=== PATIENT | male | born 1935 | race Caucasian/White ===

== ENCOUNTER → 2019-01-21 09:06 | Outpatient (CLI) | payer MEDICARE, SELFPAY ==
--- NOTE | 2019-01-21 16:34 | NEURO ---
NCS and/or EMG Patient Report HPI: Patient is a 83-year-old male who presented with numbness, tingling and weakness in both hands. Patient had both rotator cuff surgery in the past. Patient also complains of pain in the neck which is radiating down in shoulders and hands. Patient has prior history of lumbar fusion at L3-L5 about 5 years ago. Physical Exam: Decreased sensation to light touch in both hand fingers. Bilateral hand muscles atrophy including first dorsal interossei and thenar and hypothenar muscles. Degenerative change of both hand and wrist joints are noted. Findings: 1. Right median sensory nerve response is not recordable and there is a prolongation of distal latency of the left median sensory nerve response. 2. Right and left median palmar sensory responses were not recordable. 3. There is prolongation of distal latencies of right and left ulnar sensory nerve responses. 4. There is a prolongation of the distal latencies of right and left median motor nerve responses, right worse than the left, with decreased nerve conduction velocity of the right median motor nerve. 5. There is evidence of slightly decreased nerve conduction velocity of left ulnar motor nerve across the elbow. 6. There is evidence of denervation in the form of P waves and fibrillation potential as well as decreased recruitment and increased insertional activity in right and left abductor pollicis brevis muscles. Impression: 1. Findings are consistent with severe bilateral median mononeuropathy at wrist due to carpal tunnel syndrome. 2. 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 3. No electrodiagnostic evidence of cervical radiculopathy or brachial plexopathy in bilateral upper extremities. Recommendation: 1. Patient recommended to wear both hand and elbow splints as much as possible. 2. Patient is recommended to avoid repetitive hand movements and lifting heavy weights or sleeping or leaning on elbows. 3. Patient recommended to have a surgical release of right and left carpal tunnel as soon as possible.
== END ==
PROVIDERS: Family Provider Family Medicine; PCP Family Medicine; Referring Provider Orthopaedic Surgery Orthopaedic Surgery of the Spine; Visit Provider Orthopaedic Surgery Orthopaedic Surgery of the Spine
DX: R20.2 Paresthesia of skin (principal)
CPT/HCPCS: 95886; 95912

== ENCOUNTER → 2019-01-28 10:50 | Outpatient (CLI) | payer MEDICARE, SELFPAY ==
--- NOTE | 2019-01-28 17:16 | STRESSREP ---
Stress Test Report Date: 01-28-19 Procedure: Exercise tolerance test Indications: Jaw discomfort; fatigue Consent: Per the patient Procedure: The patient exercised on a Junaid protocol for 6 minutes completing stage II achieving a peak heart rate of 125 bpm (90 % predicted maximal heart rate) with a peak blood pressure 198/92 mmHg and a peak MET capacity of approximately 7 mET's. The baseline ECG demonstrated normal sinus rhythm. The peak exercise ECG demonstrated no obvious ECG changes. There was a rare PVC during exercise and an occasional PVC during recovery. The functional capacity was considered good. The patient had no complaint of chest discomfort during exercise or recovery. The examination was discontinued secondary to dyspnea. Impression: 1. Technically adequate (percent predicted maximal heart rate greater than 85%) exercise tolerance test 2. Peak exercise ECG with no obvious ECG changes 3. There was a rare PVC during exercise and an occasional PVC during recovery This note was generated with [employer] software. It may contain incorrect words, spelling, and punctuation that were not noted in checking the note before signing.
== END ==
PROVIDERS: Family Provider Family Medicine; PCP Family Medicine; Referring Provider Physician Assistant; Visit Provider Physician Assistant
DX: I51.89 Other ill-defined heart diseases (principal); R68.84 Jaw pain; R12 Heartburn; Z82.49 Family history of ischemic heart disease and other diseases of the circulatory system
CPT/HCPCS: 93017

== ENCOUNTER → 2020-03-13 13:25 | Outpatient (CLI) | payer MEDICARE, SELFPAY ==
--- NOTE | 2020-03-13 13:30 | RAD_ITS ---
STUDY: X-RAY CHEST REASON FOR EXAM: Male, 84 years old. Shortness of breath for 3 to 4 days. TECHNIQUE: PA and lateral views of the chest. COMPARISON: 03/04/2013 FINDINGS: There is ground glass infiltrates peripherally in both lungs most marked in the right upper lobe. There is no demonstrated pleural abnormality. Normal size heart. Normal mediastinum and krystina. Normal visualized pulmonary arteries. Normal visualized aortic arch and descending thoracic aorta. There are diffuse degenerative changes of the visualized thoracic spine. There is degenerative osteoarthritis of the bilateral shoulders. There is no demonstrated abnormality of the visualized soft tissue structures of the upper abdomen. RAD/Chest PA and Lateral IMPRESSION: Peripheral groundglass infiltrates suspicious for COVID 19 pneumonia. Electronically Signed: Shola Nunez DO at 22:42 EST Tel [phone], Service support ,
== END ==
PROVIDERS: PCP Family Medicine
DX: R06.02 Shortness of breath (principal)
CPT/HCPCS: 71046

== ENCOUNTER 2020-03-15 09:19 | Inpatient (IN) | payer MEDICARE, SELFPAY ==
[2020-03-15] VITALS (13 sets, daily range): BP systolic 125–163; BP diastolic 61–95; PULSE 55–96; RESP 16–21; TEMP 35.7–36.4; O2SAT 91–96; BMI 27.0; BMI 26.1
--- NOTE | 2020-03-15 09:33 | EKG12_ITS ---
Test Reason : Blood Pressure : / mmHG Vent. Rate : 064 BPM Atrial Rate : 064 BPM P-R Int : 192 ms QRS Dur : 090 ms QT Int : 414 ms P-R-T Axes : 036 -09 029 degrees QTc Int : 427 ms Normal sinus rhythm Possible Left atrial enlargement Left ventricular hypertrophy Abnormal ECG Confirmed by SUSANA CAI, VITA ([id number]), video news editor LATANYA WOODS ([id number]) on 03/19/2020 10:45:42 AM Referred By: ATA Confirmed By:OLIVIA MEZA MD
--- NOTE | 2020-03-15 09:38 | ED.DCSUM_ITS ---
- ER Visit Summary Date of Service: 03/15/20 Chief Complaint: Cough History of Present Illness: The patient is a 84 M with a history of asthma. He presents for increasing cough and shortness of breath over the past 5 days. This came on gradually. He never had this before. Associated with fevers for 3 of the days. His had similar symptoms. No chest pain. No leg pain, swelling, hemoptysis, or history of DVT or PE. No known exposures to COVID-19. Physical Examination: Afebrile and vital signs unremarkable. His oxygen is borderline at 91-93% on room air. He does not appear to be in any distress. Heart regular. Lungs clear. Abdomen soft. Extremities nontender with no edema. Skin appears normal. Test Results: EKG, labs, chest x-ray pending. Emergency Department Course and Treatment: Patient treated with albuterol and dexamethasone while awaiting results. I am concerned for an infectious etiology. EKG shows sinus rhythm at a rate of 64. Chest x-ray shows decreasing bilateral infiltrates. This was reviewed by me and the radiologist. Covid test was negative. White count was normal. His BNP was 244. Troponin normal. Labs all fairly unremarkable except his sodium is 119. I did check urine and osmolality testing. Is also pending. He was treated with normal saline. Will contact the hospitalist for admission for further care. Prior to admission, the patient's pulse ox was 83% at rest on room air. He was started on a nasal cannula and had good response. We will add a CTA chest. Results are pending at the time of this dictation. PCR Covid test was positive. CTA showed no evidence of PE. Treatment Plan: As above Disposition: Admission, covid cohort Impression: Covid 19, hypoxia, hyponatremia This note was generated with [employer] software. It may contain incorrect words, spelling, and punctuation that were not noted in review of the chart prior to signing ED Disposition - Plan for ED Patient: Referrals: Santos Franz MD [Primary Care Provider] -
[2020-03-15 09:57] LABS: Absolute Lymphocyte Count 0.33 X10^3/uL (0.83-4.51); Absolute Neutrophil Count 4.4 X10^3/uL (2.0-7.7); Basophil# 0.01 X10^3/uL; Basophil% 0.2 % (0-1); Hematocrit 35.8 % (40-54); Hemoglobin 12.4 g/dL (13.0-16.5); Lymphocyte # 0.33 X10^3/ul (4.0); Lymphocyte % 6.4 % (19-41); Mean Corp Hgb Conc 34.6 g/dL (32-36); Mean Corpuscular Hgb 28.2 pg (27.0-32.0); Mean Corpuscular Volume 81.5 fL (80-94); Mean Platelet Vol. 10.1 fl (6.2-12.0); Monocyte# 0.45 X10^3/uL; Monocyte% 8.7 % (0-10); NRBC Flagged by Analyzer 0 % (0-5); Neutrophil # 4.38 X10^3/uL (2.7-7.7); Neutrophil % 84.3 % (47-70); POSITIVE DIFFERENTIAL YES; Platelet Count 315 K/mm3 (150-450); RBC Distribution Width CV 12.5 % (11.6-14.6); RBC Distribution Width SD 37.8 fl (35.1-43.9); Red Blood Count 4.39 M/mm3 (4.6-6.2); White Blood Count 5.2 K/mm3 (4.4-11.0)
[2020-03-15 09:58] LABS: Differential Indicated SCAN CRITERIA MET
[2020-03-15] MEDS: dexAMETHasone 4 MG/ML Vial 6 MG IV (10:05)
[2020-03-15 10:16] LABS: BNP,B-Type NATRIURETIC PEPTIDE 244.3 pg/mL (0-100)
--- NOTE | 2020-03-15 10:16 | RAD_ITS ---
STUDY: X-RAY CHEST REASON FOR EXAM: Male, 84 years old. COUGH, SOB, FATIGUE, WEAKNESS TECHNIQUE: Single AP portable view of the chest. COMPARISON: Comparison is made with prior study dated 03/13/2020. FINDINGS: EKG electrodes are seen. Mild residual pulmonary infiltrates are seen. There is been moderate clearing as compared to prior study. Blunting of both costophrenic angles. Normal size heart. Normal mediastinum and krystina. Normal visualized pulmonary arteries. There is atherosclerotic tortuosity of the aortic arch and descending thoracic aorta. There are diffuse degenerative changes of the visualized thoracic spine. There is degenerative osteoarthritis of the bilateral shoulders. There is no demonstrated abnormality of the visualized soft tissue structures of the upper abdomen. RAD/Chest 1 View (Portable) IMPRESSION: Mild residual bilateral pulmonary infiltrates although there has been a moderate degree of clearing as compared to prior study. Electronically Signed: Juan Carlos Pruett MD at 10:30 EST , Service support ,
[2020-03-15 10:27] LABS: ALB/GLOB Ratio 0.8 RATIO (0.9-2.4); AST(SGOT) 69 U/L (15-37); Alanine Aminotransfer ALT/SGPT 44 U/L (16-61); Alkaline Phosphatase 64 U/L (45-117); Anion Gap 9 (5-15); BUN 15 mg/dL (7-18); BUN/Creat Ratio 15.2 RATIO (10-20); Calcium,Total 8.8 mg/dL (8.5-10.1); Chloride 86 mmol/L (98-107); Creatinine, Serum 0.99 mg/dL (0.70-1.30); EST Glomerular Filtration Rate 77 mL/min (>60); Est Glom Filt Rate - Afr Amer 93 mL/min (>60); Globulin 3.6 g/dL (2.2-4.2); Glucose 107 mg/dL (74-106); Potassium 4.1 mmol/L (3.5-5.1); Protein, Total 6.6 g/dL (6.4-8.2); Sodium Level 119 mmol/L (136-145)
[2020-03-15] MEDS: 0.9% Normal Saline 1,000 ML 150 ML IV ×2 (10:54→15:10)
--- NOTE | 2020-03-15 10:59 | CT_ITS ---
STUDY: CTA CHEST REASON FOR EXAM: Male, 84 years old. Pulmonary emboli, cough, SOB, weakness, fatigue, COVID pending. Hx skin and prostate cancer. RADIATION DOSAGE (If Supplied By Facility): CTDIvol = ( 10.59 ) mGy, DLP = ( 434.30 ) mGycm TECHNIQUE: The examination was performed with the intravenous administration of IV 100mL Isovue-370. Post-processing of the angiographic images was performed, with multiplanar reformation and 3D reconstruction. Individualized dose optimization techniques were used for this CT. COMPARISON: None. FINDINGS: Normal enhancement of the main pulmonary artery and right and left pulmonary arteries. Normal enhancement of the bilateral peripheral pulmonary arteries. There is no demonstrated pulmonary embolism. Normal thoracic aorta and visualized great vessels. There is no demonstrated aortic dissection. There are calcifications of the coronary arteries. There are visualized mediastinal lymph nodes, which are within normal size limits, and with normal morphology. Normal hilar regions. Normal visualized trachea and bronchi. The lungs are well expanded. Multiple diffuse bilateral groundglass appearance in both lungs and the preferential peripheral distribution. There is evidence of a scarring and bronchiectasis in the posterior aspect of the lingular segment of the left upper lobe. Small bilateral pleural effusions slightly more prominent on the left side. Normal chest wall structures. There are degenerative changes of thoracic spine. Normal visualized upper abdomen. CT/CTA Chest W/WO Contrast IMPRESSION: No evidence of pulmonary embolism. Diffuse bilateral groundglass appearance in both lungs as described. Small bilateral effusions more prominent on the left side. Electronically Signed: Juan Carlos Pruett MD at 12:46 EST , Service support ,
[2020-03-15 11:07] LABS: Bacteria 0 SEEN /hpf (None Seen); Mucous, Urine 0 SEEN /hpf (<or=2+); Red Blood Cells-Urine 0 SEEN /hpf (0-5); Squamous Epithelial Cells - UA 0 SEEN /hpf (0-5); White Blood Cells 0 SEEN /hpf (0-5)
[2020-03-15 11:09] LABS: Color, Urine Yellow (Yellow); Glucose, Dipstick Normal (Normal); Ketone-Dipstick 5 mg/dl (Negative); Leukocyte Esterase-Dipstick Negative /ul (Negative); Nitrite-Dipstick Negative (Negative); Occult Blood-Urine Negative /ul (Negative); Protein-Dipstick 30 mg/dl (Negative); Urine Bilirubin Dipstick Negative (Negative); Urine Clarity Clear (Clear); Urine Urobilinogen Normal (Normal); Urine pH 6.5 (5.0 - 8.0)
[2020-03-15 11:14] LABS: Osmolality, Serum 246 mOsm/KG (280-301)
[2020-03-15 11:14] LABS: Osmolality, Urine 288 mOsm/KG; Urine Sodium 19 mmol/L (Not Establ.)
--- NOTE | 2020-03-15 12:01 | HP.PCM_ITS ---
Problem List (1) Chronic hyponatremia Status: Acute (2) Hypoxia Status: Acute (3) BPH (benign prostatic hyperplasia) Status: Chronic (4) Asthma Status: Acute History of Present Illness Date of Admission: 03/15/20 Chief Complaint: Cough shortness of breath and mild fever for last 5 days The patient is a 84 year old M with no significant past medical history except BPH came to ED with cough, shortness of breath fever for last 5 days. He also had mild diaphoresis but denies chest pain/tightness or heaviness. He has productive cough with initial clear but is now yellowish now. Shortness of breath is getting worse initially on exertion but currently dyspnea at rest. He denies nausea, vomiting or diarrhea. Denies exposure to any suspected COVID-19 person. His COVID-19 PCR is negative. Chest x-ray done in the ER shows mild residual bilateral pulmonary infiltrate although it is better than the previous chest x-ray on 03/13 which showed bilateral peripheral groundglass infiltrates more marked in right upper lobe EKG shows normal sinus rhythm at 64 beats minute with LVH, LAE, QTC 427 ms. In ED, heart rate 64/min. Blood pressure 136/62 pulse ox 92% on [address] angiogram ordered by ER physician. Sodium is 119. Serum osmolarity 246. Previous sodium was 136 in April 2013. Urine osmolarity 288, urine sodium 19. Past Medical History Past Medical History (Chronic Problems): Chronic Problems BPH (benign prostatic hyperplasia) (Chronic) Allergies ciprofloxacin [From Cipro] Adverse Reaction (Verified 03/15/20 09:21) Nausea/Vom/Diarrhea sulfamethoxazole [From Bactrim] Adverse Reaction (Verified 03/15/20 09:21) Other caused liver to shut down trimethoprim [From Bactrim] Adverse Reaction (Verified 03/15/20 09:21) Other caused liver to shut down Home Medications: Ambulatory Orders Medication Instructions Recorded Multivitamins,Therapeutic 1 tablet PO DAILY 01/29/13 [Multivitamin] Clancy-3 Fatty Acids/Fish Oil 1 each PO DAILY 01/29/13 [Clancy 3 1,000 mg Softgel] Saw [place] 160 mg PO DAILY 01/29/13 Vitamin E 400 units PO DAILY 01/29/13 Vit A/Vit C/Vit E/Zinc/Copper 1 each PO DAILY 03/01/13 [Icaps Areds Formula Tablet] [place] 2,000 mg PO DAILY 09/05/16 Dutasteride 0.5 mg PO DAILY #30 capsule 09/10/16 Smoking Status: Former smoker Alcohol: None Drugs: None - *Family History Paternal History Items: No pertinent history Review of Systems Constitutional: Reports: Chills, Fever, Malaise, Weakness. Denies: Weight Change HEENT: Denies: Head Aches, Sinus Congestion, Sinus Drainage Cardiovascular: Denies: Chest Pain, Palpitations Respiratory: Reports: Cough, Shortness of Breath, Shortness of breath at rest, Shortness of breath upon exertion, Sputum production Gastrointestinal: Denies: Abdominal Pain, Nausea, Vomiting Genitourinary: Reports: Hesitancy. Denies: Dysuria, Frequency, Hematuria Musculoskeletal: Reports: Joint Pain. Denies: Joint Tenderness Skin: Denies: Rash, Wounds Neurological: Denies: Numbness, Tingling, Focal weakness Psychiatric: Denies: Anxiety, Depression, Homicidal Ideations, Suicidal Ideations Hematologic/ Lymphatic: Denies: Easy Bruising, Easy Bleeding VTE Information - Inpt Only VTE Present on Admission: No VTE Mechan Device Prophylaxis: None VTE Pharm Prophylaxis ordered?: Yes Patient Problems: Active and Suspected Problems Chronic hyponatremia (Acute) Hypoxia (Acute) Objective: Physical exam General: Alert, Oriented x3, Cooperative HEENT: Atraumatic, PERRLA, EOMI, Normocephalic Oral: No Gingival or Mucosal Lesions/ Ulcerations Neck: Supple, No JVD, Negative Carotid Bruits Lungs: Air entry diminished in bilateral lung bases. No wheezing. No crepitation/rhonchi Cardiovascular: Regular rate, Regular Rhythm, Normal S1, Normal S2, No murmurs Abdomen: Bowel Sounds Present, Soft, Non Tender, Non-Distended : No renal angle tenderness. No suprapubic tenderness. Extremities: No edema, Capillary Refill Less than 3 Seconds Skin: No rashes, No breakdown Musculoskeletal: Bony hypertrophy and arthritis changes in wrist and hand bones. No Tenderness to Palpation of Joints or Extremities Neurological: Cranial nerves II-XII grossly intact, Deep Tendon Reflexes 2+/4 and Symmetrical, Neuro grossly intact Psych/Mental Status: Normal Affect, Appropriate. - Physical Exam Vitals/I&O's: Vital Signs Temp Pulse Resp BP Pulse Ox 97.3 F L 64 20 H 136/62 H 92 03/15/20 10:51 03/15/20 10:51 03/15/20 10:51 03/15/20 10:51 03/15/20 10:51 Oxygen Flow Rate (L/min) 2 Oxygen Delivery Method Nasal Cannula Weight: 178 lb Body Mass Index (BMI) 27.0 Microbiology Past 72 Hours 03/15/20 09:32 Mucosa - Nose SARS-CoV-2 Antigen (Rapid) - Final Laboratory Results 03/15/20 09:38: WBC 5.2, RBC 4.39 L, Hgb 12.4 L, Hct 35.8 L, MCV 81.5, MCH 28.2, MCHC 34.6, RDW Std Deviation 37.8, RDW Coeff of Jaspreet 12.5, Plt Count 315, MPV 10.1, Immature Gran % (Auto) 0.400, Neut % (Auto) 84.3 H, Lymph % (Auto) 6.4 L, [place] % (Auto) 8.7, Eos % (Auto) 0.0, Baso % (Auto) 0.2, Absolute Neuts (auto) 4.4, Absolute Lymphs (auto) 0.33 L, Nucleated RBC % 0, Differential Comment COMMENT 03/15/20 09:38: Sodium 119 L*, Potassium 4.1, Chloride 86 L, Carbon Dioxide 24.0, Anion Gap 9, BUN 15, Creatinine 0.99, Estim Creat Clear Calc 54.70, Est GFR (MDRD) Af Amer 93, Est GFR (MDRD) Non-Af 77, BUN/Creatinine Ratio 15.2, Glucose 107 H, Calcium 8.8, Total Bilirubin 0.80, AST 69 H, ALT 44, Alkaline Phosphatase 64, Troponin I < 0.015, Total Protein 6.6, Albumin 3.0 L, Globulin 3.6, Albumin/Globulin Ratio 0.8 L 03/15/20 09:38: B-Natriuretic Peptide 244.3 H 03/15/20 09:38: Serum Osmolality 246 L 03/15/20 10:40: COVID-19 (GOPI) Pending 03/15/20 10:58: Urine Color Yellow, Urine Clarity Clear, Urine pH 6.5, Ur Specific Kiana 1.010, Urine Protein 30 H, Urine Glucose (UA) Normal, Urine Ketones 5 H, Urine Occult Blood Negative, Urine Nitrite Negative, Urine Bilirubin Negative, Urine Urobilinogen Normal, Ur Leukocyte Esterase Negative, Urine RBC 0 SEEN, Urine WBC 0 SEEN, Ur Squamous Epith Cells 0 SEEN, Urine Bacteria 0 SEEN, Urine Mucus 0 SEEN 03/15/20 10:58: Urine Osmolality 288 03/15/20 10:58: Ur Random Sodium 19 Current Medications Sodium Chloride () 1,000 mls @ 150 mls/hr IV .[id number] [facility] Last Admin: 03/15/20 10:54 Dose: 150 mls/hr Documented by: Assessment/Plan All Active Problems Chronic hyponatremia (Acute) Hypoxia (Acute) Asthma (Acute) The patient is a 84 year old M with no significant past medical history except BPH came to ED with cough, shortness of breath fever for last 5 days. He also had mild diaphoresis but denies chest pain/tightness or heaviness. EKG shows normal sinus rhythm at 64 beats minute with LVH, LAE, QTC 427 ms. Sodium is 119. Serum osmolarity 246. Previous sodium was 136 in April 2013. Urine osmolarity 288, urine sodium 19. 1. Subacute hyponatremia: Patient is being admitted in PCU. Urine osmolality more than serum osmolality. Patient denies any symptoms or conditions of hypovolemia. Monitor serum sodium after 4 hours 6 hourly. 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 Request nephrology consult. Patient denies any history of cancer, prolonged smoking, emphysema or COPD. 2. Possible viral bronchitis with history of chronic stable asthma: Patient is not on inhaler at home. Does not seem to be in acute asthma exacerbation but symptoms are more suggestive of acute bronchitis probably viral. Rapid antigen SARS-CoV-2 negative, COVID-19 PCR test is pending. If COVID-19 is negative, will order respiratory panel. Continue DuoNeb q. 4 hourly and steroid for symptomatic management. Incentive spirometry and PEP. Chest x-ray done in the ER shows mild residual bilateral pulmonary infiltrate although it is better than the previous chest x-ray on 03/13 which showed bilateral peripheral groundglass infiltrates more marked in right upper lobe 3. BPH: Patient used to follow Dr. Dinero and had cystoscopy, TURP and right scrotal orchiectomy for hydrocele. Currently patient is on saw palmetto. 4. VTE prophylaxis: On Lovenox 40 mils subcu daily Microbiology Past 72 Hours 03/15/20 09:32 Mucosa - Nose SARS-CoV-2 Antigen (Rapid) - Final Laboratory Results 03/15/20 09:38: WBC 5.2, RBC 4.39 L, Hgb 12.4 L, Hct 35.8 L, MCV 81.5, MCH 28.2, MCHC 34.6, RDW Std Deviation 37.8, RDW Coeff of Jaspreet 12.5, Plt Count 315, MPV 10.1, Immature Gran % (Auto) 0.400, Neut % (Auto) 84.3 H, Lymph % (Auto) 6.4 L, [place] % (Auto) 8.7, Eos % (Auto) 0.0, Baso % (Auto) 0.2, Absolute Neuts (auto) 4.4, Absolute Lymphs (auto) 0.33 L, Nucleated RBC % 0, Differential Comment COMMENT 03/15/20 09:38: Sodium 119 L*, Potassium 4.1, Chloride 86 L, Carbon Dioxide 24.0, Anion Gap 9, BUN 15, Creatinine 0.99, Estim Creat Clear Calc 54.70, Est GFR (MDRD) Af Amer 93, Est GFR (MDRD) Non-Af 77, BUN/Creatinine Ratio 15.2, Glucose 107 H, Calcium 8.8, Total Bilirubin 0.80, AST 69 H, ALT 44, Alkaline Phosphatase 64, Troponin I < 0.015, Total Protein 6.6, Albumin 3.0 L, Globulin 3.6, Albumin/Globulin Ratio 0.8 L 03/15/20 09:38: B-Natriuretic Peptide 244.3 H 03/15/20 09:38: Serum Osmolality 246 L 03/15/20 10:40: COVID-19 (GOPI) Positive 03/15/20 10:58: Urine Color Yellow, Urine Clarity Clear, Urine pH 6.5, Ur Specific Kiana 1.010, Urine Protein 30 H, Urine Glucose (UA) Normal, Urine Ketones 5 H, Urine Occult Blood Negative, Urine Nitrite Negative, Urine Bilirubin Negative, Urine Urobilinogen Normal, Ur Leukocyte Esterase Negative, Urine RBC 0 SEEN, Urine WBC 0 SEEN, Ur Squamous Epith Cells 0 SEEN, Urine Bacteria 0 SEEN, Urine Mucus 0 SEEN 03/15/20 10:58: Urine Osmolality 288 03/15/20 10:58: Ur Random Sodium 19 Clinical Impression(s) from Imaging Studies Chest X-Ray 03/15/20 10:16 IMPRESSION: Mild residual bilateral pulmonary infiltrates although there has been a moderate degree of clearing as compared to prior study. Inpatient E&M: [id number] Init Hosp L3
[2020-03-15 12:17] LABS: Probe Check PASS; Specimen Processing Control PASS
[2020-03-15] MEDS: guaiFENesin 1,200 MG Tablet 1200 MG PO ×2 (15:40→20:37)
[2020-03-15] MEDS: Enoxaparin 30 MG/0.3 ML Syringe SC ×2 (15:45→20:37)
[2020-03-15] MEDS: Ipratropium/Albuterol Sulfate 3 ML AMPUL.NEB INHALATION (19:40)
[2020-03-15] MEDS: Acetaminophen 325 MG Tablet 650 MG PO (20:37)
[2020-03-15] MEDS: MELATONIN 3 MG TABLET PO (20:38)
[2020-03-16] VITALS (14 sets, daily range): BP systolic 107–142; BP diastolic 53–74; PULSE 50–72; RESP 12–20; TEMP 35.8–36.4; O2SAT 91–96
[2020-03-16] MEDS: Ipratropium/Albuterol Sulfate 3 ML AMPUL.NEB INHALATION ×3 (07:08→15:19)
[2020-03-16 07:16] LABS: Absolute Lymphocyte Count 0.45 X10^3/uL (0.83-4.51); Absolute Neutrophil Count 2.8 X10^3/uL (2.0-7.7); Basophil# 0.01 X10^3/uL; Basophil% 0.3 % (0-1); Hematocrit 39.1 % (40-54); Hemoglobin 13.4 g/dL (13.0-16.5); Lymphocyte # 0.45 X10^3/ul (4.0); Lymphocyte % 12.6 % (19-41); Mean Corp Hgb Conc 34.3 g/dL (32-36); Mean Corpuscular Hgb 28.2 pg (27.0-32.0); Mean Corpuscular Volume 82.3 fL (80-94); Mean Platelet Vol. 10.1 fl (6.2-12.0); Monocyte# 0.32 X10^3/uL; NRBC Flagged by Analyzer 0 % (0-5); Neutrophil # 2.76 X10^3/uL (2.7-7.7); Neutrophil % 77.3 % (47-70); POSITIVE DIFFERENTIAL YES; Platelet Count 361 K/mm3 (150-450); RBC Distribution Width CV 12.7 % (11.6-14.6); RBC Distribution Width SD 38.3 fl (35.1-43.9); Red Blood Count 4.75 M/mm3 (4.6-6.2); White Blood Count 3.6 K/mm3 (4.4-11.0)
[2020-03-16 07:42] LABS: Differential Indicated SCAN CRITERIA MET
[2020-03-16 08:10] LABS: Anion Gap 6 (5-15); BUN 17 mg/dL (7-18); BUN/Creat Ratio 20.6 RATIO (10-20); Calcium,Total 9.6 mg/dL (8.5-10.1); Chloride 102 mmol/L (98-107); Creatinine, Serum 0.83 mg/dL (0.70-1.30); EST Glomerular Filtration Rate 94 mL/min (>60); Est Glom Filt Rate - Afr Amer 114 mL/min (>60); Estimated Creatinine Clearance 65.24 ml/min; Glucose 119 mg/dL (74-106); Phosphorus 3.4 mg/dL (2.5-4.9); Potassium 4.2 mmol/L (3.5-5.1); Sodium Level 133 mmol/L (136-145); Thyroid Stim Hormone (TSH) 0.48 uIU/mL (0.358-3.74)
[2020-03-16] MEDS: Vitamin E 400 UNITS Capsule PO (09:46)
[2020-03-16] MEDS: guaiFENesin 1,200 MG Tablet 1200 MG PO ×2 (09:46→20:11)
[2020-03-16] MEDS: Finasteride 5 MG Tablet PO (09:46)
[2020-03-16] MEDS: Enoxaparin 30 MG/0.3 ML Syringe SC ×2 (09:47→20:11)
[2020-03-16] MEDS: dexAMETHasone 10 MG/ML Vial 6 MG IV (09:49)
[2020-03-16] MEDS: 0.9% Saline Lock 10 ML Syringe IV (09:50)
--- NOTE | 2020-03-16 11:23 | CASEMGMT ---
RN CM Assessment Note Introduced role of CM to patient via phone to room. Demographics, PCP verified. Patient is awake, alert and able to participate in assessment. [place] , and his son also lives on farm. Pt states he does not wear oxygen at home, however borrowed a friend's oxygen tank to use. Discussed with patient that testing will be completed prior to discharge and if oxygen would be needed, would be set up. states his also has symptoms, but son can assist her if needed to bring groceries, supplies etc. COVID 19 test positive on 03/15/20 @ [facility] Presentation: shortness of breath, productive cough. Diagnosis: COVID 19 PCP: Dr. Franz Specialists: none Insurance: [employer] [facility] PPO Preferred Pharmacy: [facility] Prescription Benefit: yes LNOK: and son Living Arrangements: Lives independently in one story home. Denies care needs. Tranportation: drives DME: walker, does not use. Discussed list of oxygen providers in network with [employer]: [facility] (aware of hospital affiliation), [facility]. The patient prefers [facility]. HHC: none SNF: none Patient DC Goals: Home DC Plan: Home. Possible home oxygen needs. Recommend testing prior to dc. CM available for discharge planning coordination. Contact CM for any concerns/needs that may arise. Jesus LORENZO RN ACM
--- NOTE | 2020-03-16 12:57 | PN_ITS ---
Patient Problems: Active and Suspected Problems Chronic hyponatremia (Acute) Hypoxia (Acute) Asthma (Acute) Reason for Visit: Follow-up for hyponatremia and COVID-19 bilateral pneumonia. Objective: Patient does not have fever or chills. Heart rate in 50s. Respiratory rate 18/min. No shortness of breath at rest but dyspnea on exertion. Physical exam General: Alert, Oriented x3, Cooperative HEENT: Atraumatic, PERRLA, EOMI, Normocephalic Oral: No Gingival or Mucosal Lesions/ Ulcerations Neck: Supple, No JVD, Negative Carotid Bruits Lungs: Air entry diminished in bilateral lung bases. No crepitation/rhonchi Cardiovascular: Regular rate, Regular Rhythm, Normal S1, Normal S2, No murmurs Abdomen: Bowel Sounds Present, Soft, Non Tender, Non-Distended : No renal angle tenderness. No suprapubic tenderness. Extremities: No edema, Capillary Refill Less than 3 Seconds Skin: No rashes, No breakdown Musculoskeletal: No Tenderness to Palpation of Joints or Extremities Neurological: Cranial nerves II-XII grossly intact, Deep Tendon Reflexes 2+/4 and Symmetrical, Neuro grossly intact Psych/Mental Status: Normal Affect, Appropriate. Vitals/I&O's: Vital Signs Temp Pulse Resp BP Pulse Ox 96.5 F L 58 L 20 H 107/53 L 96 03/16/20 09:43 03/16/20 09:43 03/16/20 09:43 03/16/20 09:43 03/16/20 09:43 Oxygen Flow Rate (L/min) 2 Oxygen Delivery Method Room Air Weight: 171 lb 15.369 oz Body Mass Index (BMI) 26.1 Intake and Output for Last 24 Hours 03/14/20 03/15/20 03/16/20 23:59 23:59 23:59 Intake Total 2207.5 / 2207.5 Balance 2207.5 / 2207.5 Microbiology Past 72 Hours 03/15/20 19:35 Mucosa - Nasopharyngeal Respiratory Panel (PCR) - Final 03/15/20 09:32 Mucosa - Nose SARS-CoV-2 Antigen (Rapid) - Final Laboratory Results 03/15/20 09:38: Magnesium 2.0 03/16/20 06:55: Sodium 133 L, Potassium 4.2, Chloride 102, Carbon Dioxide 25.0, Anion Gap 6, BUN 17, Creatinine 0.83, Estim Creat Clear Calc 65.24, Est GFR (MDRD) Af Amer 114, Est GFR (MDRD) Non-Af 94, BUN/Creatinine Ratio 20.6 H, Glucose 119 H, Calcium 9.6, Phosphorus 3.4, TSH 0.48 03/16/20 06:55: WBC 3.6 L, RBC 4.75, Hgb 13.4, Hct 39.1 L, MCV 82.3, MCH 28.2, MCHC 34.3, RDW Std Deviation 38.3, RDW Coeff of Jaspreet 12.7, Plt Count 361, MPV 10.1, Immature Gran % (Auto) 0.800, Neut % (Auto) 77.3 H, Lymph % (Auto) 12.6 L, [place] % (Auto) 9.0, Eos % (Auto) 0.0, Baso % (Auto) 0.3, Absolute Neuts (auto) 2.8, Absolute Lymphs (auto) 0.45 L, Nucleated RBC % 0, Diff Path Review May foll Current Medications Acetaminophen (Acetaminophen 325 Mg Tablet) 650 mg PO Q6H PRN PRN PRN Reason: Pain Score 1-10/Temp > 100.7 F Last Admin: 03/15/20 20:37 Dose: 650 mg Documented by: Al Hydroxide/Mg Hydroxide (Mag Hydrox/Al Hydrox/Simeth 30 Ml Udc) 30 ml PO Q6H PRN PRN PRN Reason: Gastric Burning Albuterol Sulfate (Albuterol 2.5 Mg/3 Ml Vial.Neb.) 2.5 mg INHALATION Q2H PRN PRN PRN Reason: SOB/Wheezing Albuterol/Ipratropium (Ipratropium/Albuterol Sulfate 3 Ml Ampul.Neb) 3 ml I NHALATION Q4HWA.RT [facility] Last Admin: 03/16/20 11:19 Dose: 3 ml Documented by: Dexamethasone Sodium Phosphate (Dexamethasone 10 Mg/Ml Vial) 6 mg IV DAILY [facility] Last Admin: 03/16/20 09:49 Dose: 6 mg Documented by: Enoxaparin Sodium (Enoxaparin 30 Mg/0.3 Ml Syringe) 30 mg SC BID [facility] Last Admin: 03/16/20 09:47 Dose: 30 mg Documented by: Finasteride (Finasteride 5 Mg Tablet) 5 mg PO DAILY [facility] Last Admin: 03/16/20 09:46 Dose: 5 mg Documented by: Guaifenesin (Guaifenesin 1,200 Mg Tablet) 1,200 mg PO BID [facility] Last Admin: 03/16/20 09:46 Dose: 1,200 mg Documented by: Remdesivir 100 mg/ Sodium (Chloride) 250 mls @ 125 mls/hr IV DAILY [facility] Stop: 03/19/20 11:59 Last Admin: 03/16/20 10:16 Dose: 125 mls/hr Documented by: Sodium Chloride () 250 mls @ 15 mls/hr IV .[id number] PRN PRN Reason: Additional IVPB Infusion Melatonin (Melatonin 3 Mg Tablet) 3 mg PO QHS PRN PRN PRN Reason: INSOMNIA Last Admin: 03/15/20 20:38 Dose: 3 mg Documented by: Morphine Sulfate (Morphine 2 Mg/Ml Syringe) 2 mg IV Q3H PRN PRN PRN Reason: Pain Score 6-10 Nitroglycerin (Nitroglycerin (Inpatient Use) 0.4 Mg Tab.Subl) 0.4 mg SUBLINGUAL Q5M PRN PRN Reason: CARDIAC/CHEST PAIN Oxycodone HCl (Oxycodone 5 Mg Tablet) 5 mg PO Q4H PRN PRN PRN Reason: Pain Score 4-5 Prochlorperazine Edisylate (Prochlorperazine 10 Mg/2 Ml Vial) 5 mg IV Q4H PRN PRN PRN Reason: Breakthrough Nausea/Vomiting Senna/Docusate Sodium (Senna/Docusate Sodium 1 Tablet) 2 tablet PO BID PRN PRN PRN Reason: Constipation Sodium Chloride (0.9% Saline Lock 10 Ml Syringe) 10 - 40 ml IV UD PRN PRN Reason: SALINE FLUSH Last Admin: 03/16/20 09:50 Dose: 10 ml Documented by: Vitamin E (Vitamin E 400 Units Capsule) 400 units PO DAILY [facility] Last Admin: 03/16/20 09:46 Dose: 400 units Documented by: Zinc Sulfate (Zinc Sulfate (50mg Elemental) 220 Mg Capsule) 220 mg PO DAILY [facility] Last Admin: 03/16/20 09:46 Dose: 220 mg Documented by: STROKE Vital Signs/Narrative: Vital Signs Temp Pulse Resp BP Pulse Ox 03/16/20 09:43 96.5 F L 58 L 20 H 107/53 L 96 Medical Necessity - Tobacco Use Smoking Status: Former smoker Assessment/Plan All Active Problems Chronic hyponatremia (Acute) Hypoxia (Acute) Asthma (Acute) The patient is a 84 year old M with no significant past medical history except BPH came to ED with cough, shortness of breath fever for last 5 days. He also had mild diaphoresis but denies chest pain/tightness or heaviness. EKG shows normal sinus rhythm at 64 beats minute with LVH, LAE, QTC 427 ms. Sodium is 119. Serum osmolarity 246. Previous sodium was 136 in April 2013. Urine osmolarity 288, urine sodium 19. 1. Subacute hyponatremia most likely due to hypovolemia: Patient is being admitted in PCU. Urine osmolality more than serum osmolality. Patient denies any symptoms or conditions of hypovolemia. Monitor serum sodium after 4 hours 6 hourly. 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 Request nephrology consult. Patient denies any history of cancer, prolonged smoking, emphysema or COPD. 03/16: Hypotonic hypovolemic hyponatremia: Sodium recovered well 133. No more normal saline. Discussed with the steel erector apprentice. 2. Possible viral bronchitis with history of chronic stable asthma: Patient is not on inhaler at home. Does not seem to be in acute asthma exacerbation but symptoms are more suggestive of acute bronchitis probably viral. Rapid antigen SARS-CoV-2 negative, COVID-19 PCR test is pending. If COVID-19 is negative, will order respiratory panel. Continue DuoNeb q. 4 hourly and steroid for symptomatic management. Incentive spirometry and PEP. Chest x-ray done in the ER shows mild residual bilateral pulmonary infiltrate although it is better than the previous chest x-ray on 03/13 which showed bilateral peripheral groundglass infiltrates preferentially peripheral and lower lobes, left lingular lobe scarring and bronchiectasis. 03/16: CTA chest individually reviewed. Did not show PE but bilateral groundglass opacities may lead lower lobes. Respiratory panel is negative. COVID-19 PCR is positive although SARS-CoV-2 rapid antigen was negative. 3. BPH: Patient used to follow Dr. Dinero and had cystoscopy, TURP and right scrotal orchiectomy for hydrocele. Currently patient is on saw palmetto. 4. VTE prophylaxis: On Lovenox 40 mils subcu daily Microbiology Past 72 Hours 03/15/20 19:35 Mucosa - Nasopharyngeal Respiratory Panel (PCR) - Final 03/15/20 09:32 Mucosa - Nose SARS-CoV-2 Antigen (Rapid) - Final Laboratory Results 03/15/20 09:38: Magnesium 2.0 03/16/20 06:55: Sodium 133 L, Potassium 4.2, Chloride 102, Carbon Dioxide 25.0, Anion Gap 6, BUN 17, Creatinine 0.83, Estim Creat Clear Calc 65.24, Est GFR (MDRD) Af Amer 114, Est GFR (MDRD) Non-Af 94, BUN/Creatinine Ratio 20.6 H, Glucose 119 H, Calcium 9.6, Phosphorus 3.4, TSH 0.48 03/16/20 06:55: WBC 3.6 L, RBC 4.75, Hgb 13.4, Hct 39.1 L, MCV 82.3, MCH 28.2, MCHC 34.3, RDW Std Deviation 38.3, RDW Coeff of Jaspreet 12.7, Plt Count 361, MPV 10.1, Immature Gran % (Auto) 0.800, Neut % (Auto) 77.3 H, Lymph % (Auto) 12.6 L, [place] % (Auto) 9.0, Eos % (Auto) 0.0, Baso % (Auto) 0.3, Absolute Neuts (auto) 2.8, Absolute Lymphs (auto) 0.45 L, Nucleated RBC % 0, Diff Path Review May foll Clinical Impression(s) from Imaging Studies Chest X-Ray 03/15/20 10:16 IMPRESSION: Mild residual bilateral pulmonary infiltrates although there has been a moderate degree of clearing as compared to prior study. Chest CTA 03/15/20 10:59 IMPRESSION: No evidence of pulmonary embolism. Diffuse bilateral groundglass appearance in both lungs as described. Small bilateral effusions more prominent on the left side. Electronically Signed: Juan Carlos Pruett MD at 12:46 EST , Service support , Inpatient E&M: [id number] Subs Hosp L2
--- NOTE | 2020-03-16 14:20 | CON.PCM_ITS ---
Consultation - Renal 03/16/20 PCP/ Referring MD: Requesting physician: [] Primary care physician: Dr. Santos Franz MD Reason for Consultation:: Hyponatremia - History of Present Illness History of Present Illness: The patient is a 84 year old M Who was admitted to the hospital with complaints of shortness of breath, fever for 5 days. Rapid covid test in the ER was negative but follow-up PCR was positive. Renal consultation for hyponatremia with a sodium of 119. Did not have any neurological symptoms on admission. Preadmission medication list reviewed. - Allergies Allergies: Allergies ciprofloxacin [From Cipro] Adverse Reaction (Verified 03/15/20 09:21) Nausea/Vom/Diarrhea sulfamethoxazole [From Bactrim] Adverse Reaction (Verified 03/15/20 14:13) caused liver to shut down caused liver to shut down trimethoprim [From Bactrim] Adverse Reaction (Verified 03/15/20 14:13) caused liver to shut down caused liver to shut down - Current Medications Current Medications: Current Medications Acetaminophen (Acetaminophen 325 Mg Tablet) 650 mg PO Q6H PRN PRN PRN Reason: Pain Score 1-10/Temp > 100.7 F Last Admin: 03/15/20 20:37 Dose: 650 mg Documented by: Al Hydroxide/Mg Hydroxide (Mag Hydrox/Al Hydrox/Simeth 30 Ml Udc) 30 ml PO Q6H PRN PRN PRN Reason: Gastric Burning Albuterol Sulfate (Albuterol 2.5 Mg/3 Ml Vial.Neb.) 2.5 mg INHALATION Q2H PRN PRN PRN Reason: SOB/Wheezing Albuterol/Ipratropium (Ipratropium/Albuterol Sulfate 3 Ml Ampul.Neb) 3 ml INHALATION Q4HWA.RT [facility] Last Admin: 03/16/20 11:19 Dose: 3 ml Documented by: Dexamethasone (Dexamethasone 4 Mg Tablet) 6 mg PO DAILY [facility] Stop: 03/25/20 10:01 Enoxaparin Sodium (Enoxaparin 30 Mg/0.3 Ml Syringe) 30 mg SC BID [facility] Last Admin: 03/16/20 09:47 Dose: 30 mg Documented by: Finasteride (Finasteride 5 Mg Tablet) 5 mg PO DAILY [facility] Last Admin: 03/16/20 09:46 Dose: 5 mg Documented by: Guaifenesin (Guaifenesin 1,200 Mg Tablet) 1,200 mg PO BID [facility] Last Admin: 03/16/20 09:46 Dose: 1,200 mg Documented by: Remdesivir 100 mg/ Sodium (Chloride) 250 mls @ 125 mls/hr IV DAILY [facility] Stop: 03/19/20 11:59 Last Admin: 03/16/20 10:16 Dose: 125 mls/hr Documented by: Sodium Chloride () 250 mls @ 15 mls/hr IV .[id number] PRN PRN Reason: Additional IVPB Infusion Melatonin (Melatonin 3 Mg Tablet) 3 mg PO QHS PRN PRN PRN Reason: INSOMNIA Last Admin: 03/15/20 20:38 Dose: 3 mg Documented by: Morphine Sulfate (Morphine 2 Mg/Ml Syringe) 2 mg IV Q3H PRN PRN PRN Reason: Pain Score 6-10 Nitroglycerin (Nitroglycerin (Inpatient Use) 0.4 Mg Tab.Subl) 0.4 mg SUBLINGUAL Q5M PRN PRN Reason: CARDIAC/CHEST PAIN Oxycodone HCl (Oxycodone 5 Mg Tablet) 5 mg PO Q4H PRN PRN PRN Reason: Pain Score 4-5 Prochlorperazine Edisylate (Prochlorperazine 10 Mg/2 Ml Vial) 5 mg IV Q4H PRN PRN PRN Reason: Breakthrough Nausea/Vomiting Senna/Docusate Sodium (Senna/Docusate Sodium 1 Tablet) 2 tablet PO BID PRN PRN PRN Reason: Constipation Sodium Chloride (0.9% Saline Lock 10 Ml Syringe) 10 - 40 ml IV UD PRN PRN Reason: SALINE FLUSH Last Admin: 03/16/20 09:50 Dose: 10 ml Documented by: Vitamin E (Vitamin E 400 Units Capsule) 400 units PO DAILY [facility] Last Admin: 03/16/20 09:46 Dose: 400 units Documented by: Zinc Sulfate (Zinc Sulfate (50mg Elemental) 220 Mg Capsule) 220 mg PO DAILY [facility] Last Admin: 03/16/20 09:46 Dose: 220 mg Documented by: - Past Medical History Past Medical History (Chronic Problems): Chronic Problems BPH (benign prostatic hyperplasia) (Chronic) - Social History Smoking Status: Former smoker Alcohol: None Drugs: None - Family History Paternal History Items: No pertinent history Review of Systems Constitutional: Denies: Chills, Fever, Weight Change HEENT: Denies: Head Aches, Sinus Congestion, Sinus Drainage Cardiovascular: Denies: Chest Pain, Palpitations Respiratory: Reports: Shortness of Breath, Shortness of breath at rest. Denies: Cough, Sputum production Gastrointestinal: Denies: Abdominal Pain, Nausea, Vomiting Genitourinary: Denies: Dysuria Musculoskeletal: Denies: Joint Pain, Joint Tenderness Skin: Denies: Rash, Wounds Neurological: Denies: Numbness, Tingling, Focal weakness Psychiatric: Denies: Anxiety, Depression, Homicidal Ideations, Suicidal Ideations Hematologic/ Lymphatic: Denies: Easy Bruising, Easy Bleeding Patient Problems: Active and Suspected Problems Chronic hyponatremia (Acute) Hypoxia (Acute) Asthma (Acute) - Physical Exam Vitals/I&O's: Vital Signs Temp Pulse Resp BP Pulse Ox 96.5 F L 58 L 12 107/53 L 96 03/16/20 09:43 03/16/20 11:30 03/16/20 11:17 03/16/20 09:43 03/16/20 09:43 Oxygen Flow Rate (L/min) 2 Oxygen Delivery Method Room Air Weight: 78 kg Body Mass Index (BMI) 26.1 Intake and Output for Last 24 Hours 03/14/20 03/15/20 03/16/20 23:59 23:59 23:59 Intake Total 2207.5 / 2207.5 Balance 2207.5 / 2207.5 Comment: exam minimized due to Covid status, discussed with hospitalist Microbiology Past 72 Hours 03/15/20 19:35 Mucosa - Nasopharyngeal Respiratory Panel (PCR) - Final 03/15/20 09:32 Mucosa - Nose SARS-CoV-2 Antigen (Rapid) - Final Laboratory Results 03/15/20 09:38: Magnesium 2.0 03/16/20 06:55: Sodium 133 L, Potassium 4.2, Chloride 102, Carbon Dioxide 25.0, Anion Gap 6, BUN 17, Creatinine 0.83, Estim Creat Clear Calc 65.24, Est GFR (MDRD) Af Amer 114, Est GFR (MDRD) Non-Af 94, BUN/Creatinine Ratio 20.6 H, Glucose 119 H, Calcium 9.6, Phosphorus 3.4, TSH 0.48 03/16/20 06:55: WBC 3.6 L, RBC 4.75, Hgb 13.4, Hct 39.1 L, MCV 82.3, MCH 28.2, MCHC 34.3, RDW Std Deviation 38.3, RDW Coeff of Jaspreet 12.7, Plt Count 361, MPV 10.1, Immature Gran % (Auto) 0.800, Neut % (Auto) 77.3 H, Lymph % (Auto) 12.6 L, [place] % (Auto) 9.0, Eos % (Auto) 0.0, Baso % (Auto) 0.3, Absolute Neuts (auto) 2.8, Absolute Lymphs (auto) 0.45 L, Nucleated RBC % 0, Diff Path Review May foll Current Medications Acetaminophen (Acetaminophen 325 Mg Tablet) 650 mg PO Q6H PRN PRN PRN Reason: Pain Score 1-10/Temp > 100.7 F Last Admin: 03/15/20 20:37 Dose: 650 mg Documented by: Al Hydroxide/Mg Hydroxide (Mag Hydrox/Al Hydrox/Simeth 30 Ml Udc) 30 ml PO Q6H PRN PRN PRN Reason: Gastric Burning Albuterol Sulfate (Albuterol 2.5 Mg/3 Ml Vial.Neb.) 2.5 mg INHALATION Q2H PRN PRN PRN Reason: SOB/Wheezing Albuterol/Ipratropium (Ipratropium/Albuterol Sulfate 3 Ml Ampul.Neb) 3 ml INHALATION Q4HWA.RT [facility] Last Admin: 03/16/20 11:19 Dose: 3 ml Documented by: Dexamethasone (Dexamethasone 4 Mg Tablet) 6 mg PO DAILY [facility] Stop: 03/25/20 10:01 Enoxaparin Sodium (Enoxaparin 30 Mg/0.3 Ml Syringe) 30 mg SC BID [facility] Last Admin: 03/16/20 09:47 Dose: 30 mg Documented by: Finasteride (Finasteride 5 Mg Tablet) 5 mg PO DAILY [facility] Last Admin: 03/16/20 09:46 Dose: 5 mg Documented by: Guaifenesin (Guaifenesin 1,200 Mg Tablet) 1,200 mg PO BID [facility] Last Admin: 03/16/20 09:46 Dose: 1,200 mg Documented by: Remdesivir 100 mg/ Sodium (Chloride) 250 mls @ 125 mls/hr IV DAILY [facility] Stop: 03/19/20 11:59 Last Admin: 03/16/20 10:16 Dose: 125 mls/hr Documented by: Sodium Chloride () 250 mls @ 15 mls/hr IV .[id number] PRN PRN Reason: Additional IVPB Infusion Melatonin (Melatonin 3 Mg Tablet) 3 mg PO QHS PRN PRN PRN Reason: INSOMNIA Last Admin: 03/15/20 20:38 Dose: 3 mg Documented by: Morphine Sulfate (Morphine 2 Mg/Ml Syringe) 2 mg IV Q3H PRN PRN PRN Reason: Pain Score 6-10 Nitroglycerin (Nitroglycerin (Inpatient Use) 0.4 Mg Tab.Subl) 0.4 mg SUBLINGUAL Q5M PRN PRN Reason: CARDIAC/CHEST PAIN Oxycodone HCl (Oxycodone 5 Mg Tablet) 5 mg PO Q4H PRN PRN PRN Reason: Pain Score 4-5 Prochlorperazine Edisylate (Prochlorperazine 10 Mg/2 Ml Vial) 5 mg IV Q4H PRN PRN PRN Reason: Breakthrough Nausea/Vomiting Senna/Docusate Sodium (Senna/Docusate Sodium 1 Tablet) 2 tablet PO BID PRN PRN PRN Reason: Constipation Sodium Chloride (0.9% Saline Lock 10 Ml Syringe) 10 - 40 ml IV UD PRN PRN Reason: SALINE FLUSH Last Admin: 03/16/20 09:50 Dose: 10 ml Documented by: Vitamin E (Vitamin E 400 Units Capsule) 400 units PO DAILY [facility] Last Admin: 03/16/20 09:46 Dose: 400 units Documented by: Zinc Sulfate (Zinc Sulfate (50mg Elemental) 220 Mg Capsule) 220 mg PO DAILY [facility] Last Admin: 03/16/20 09:46 Dose: 220 mg Documented by: Assessment/Plan All Active Problems Chronic hyponatremia (Acute) Hypoxia (Acute) Asthma (Acute) Hyponatremia. On admission sodium levels were 119. Urine sodium was 19. Urine osmolality slightly about 300. With IV fluids alone sodium is now up to 133. Increased by about 14 points in 24 hours. Since this is hypovolemic, should be okay. IV fluids have already been stopped. No medication changes today Discussed with hospitalist
--- NOTE | 2020-03-16 15:37 | PCM.HP.ID ---
Problem List (1) COVID-19 Status: Acute Reason for Consult: covid Consulted by: Dr. Rhoades History of Present Illness: The patient is a 84 year old M with fever, cough, dyspnea, not feeling well for 4-5 days. also sick with similar symptoms. No change in taste or smell, no n/v/d. Came to ED, covid pcr (+), started on dex, remdesivir. Full ROS performed and neg except as noted above. - Medical History Past Medical History (Chronic Problems): Chronic Problems BPH (benign prostatic hyperplasia) (Chronic) Allergies/Adverse Reactions: Allergies ciprofloxacin [From Cipro] Adverse Reaction (Verified 03/15/20 09:21) Nausea/Vom/Diarrhea sulfamethoxazole [From Bactrim] Adverse Reaction (Verified 03/15/20 14:13) caused liver to shut down caused liver to shut down trimethoprim [From Bactrim] Adverse Reaction (Verified 03/15/20 14:13) caused liver to shut down caused liver to shut down Home Medications: Ambulatory Orders Medication Instructions Recorded Multivitamins,Therapeutic 1 tablet PO DAILY 01/29/13 [Multivitamin] [place]-3 Fatty Acids/Fish Oil 1 each PO DAILY 01/29/13 [[place] 3 1,000 mg Softgel] Saw [place] 160 mg PO DAILY 01/29/13 Vitamin E 400 units PO DAILY 01/29/13 Vit A/Vit C/Vit E/Zinc/Copper 1 each PO DAILY 03/01/13 [Icaps Areds Formula Tablet] [place] 2,000 mg PO DAILY 09/05/16 Albuterol Sulfate [Albuterol 1 puff INHALATION PRN PRN 03/15/20 Sulfate HFA] Azithromycin 500 mg PO DAILY 03/15/20 Zinc Sulfate 220 mg PO DAILY 03/15/20 - Social History SMOKING STATUS:: Former smoker Vital Signs Temp Pulse Resp BP Pulse Ox 97.5 F L 55 L 20 H 137/64 H 94 03/16/20 15:16 03/16/20 15:16 03/16/20 15:16 03/16/20 15:16 03/16/20 15:16 Oxygen Flow Rate (L/min) 2 Oxygen Delivery Method Room Air Weight: 78 kg Body Mass Index (BMI) 26.1 Microbiology Past 72 Hours 03/15/20 19:35 Respiratory Panel (PCR) - Final Mucosa - Nasopharyngeal 03/15/20 09:32 SARS-CoV-2 Antigen (Rapid) - Final Mucosa - Nose Laboratory Tests Past 24 Hrs 03/16/20 03/16/20 06:55 06:55 WBC 3.6 L RBC 4.75 Hgb 13.4 Hct 39.1 L MCV 82.3 MCH 28.2 MCHC 34.3 RDW Std Deviation 38.3 RDW Coeff of Jaspreet 12.7 Plt Count 361 MPV 10.1 Immature Gran % (Auto) 0.800 Neut % (Auto) 77.3 H Lymph % (Auto) 12.6 L [place] % (Auto) 9.0 Eos % (Auto) 0.0 Baso % (Auto) 0.3 Absolute Neuts (auto) 2.8 Absolute Lymphs (auto) 0.45 L Nucleated RBC % 0 Diff Path Review May foll Sodium 133 L Potassium 4.2 Chloride 102 Carbon Dioxide 25.0 Anion Gap 6 BUN 17 Creatinine 0.83 Estim Creat Clear Calc 65.24 Est GFR (MDRD) Af Amer 114 Est GFR (MDRD) Non-Af 94 BUN/Creatinine Ratio 20.6 H Glucose 119 H Calcium 9.6 Phosphorus 3.4 TSH 0.48 - Other Studies Radiology: [] reviewed Other Studies: [] Route of nutrition/ use of supplements: [] Nutritional Intake: [] IV Site: [] Urena Catheter: [] - Physical Exam General: Alert, Cooperative HEENT: Atraumatic, PERRLA, EOMI Neck: Supple, No Nodes Lungs: Diminished Cardiovascular: Regular rate, Regular Rhythm Abdomen: Soft, Non Tender, Non-Distended Extremities: No edema Skin: No rashes IV Site: Peripheral, without redness Musculoskeletal: No Tenderness to Palpation of Joints or Extremities Neurological: Cranial nerves II-XII grossly intact - Assessment/Plan Antibiotics: [] Assessment/Plan: [] Active and Suspected Problems Chronic hyponatremia (Acute) Hypoxia (Acute) Asthma (Acute) covid with hypoxia - sx started around 03/12/20. also sick. Recommended testing and quarantine. On dex, remdesivir, lovenox 30mg bid. CT neg for PE. On RA. Plan on 10 days dex, 20 days quarantine from start of symptoms. Will check ddimer. Thank you, will follow
[2020-03-17] VITALS (8 sets, daily range): BP systolic 121–160; BP diastolic 61–75; PULSE 53–67; RESP 16–18; TEMP 36.3–36.7; O2SAT 93–97
[2020-03-17 06:38] LABS: Hematocrit 36.3 % (40-54); Hemoglobin 12.1 g/dL (13.0-16.5); Mean Corp Hgb Conc 33.3 g/dL (32-36); Mean Corpuscular Hgb 27.8 pg (27.0-32.0); Mean Corpuscular Volume 83.4 fL (80-94); Platelet Count 419 K/mm3 (150-450); RBC Distribution Width SD 39.5 fl (35.1-43.9); Red Blood Count 4.35 M/mm3 (4.6-6.2); White Blood Count 7.4 K/mm3 (4.4-11.0)
[2020-03-17 06:55] LABS: D-Dimer Quantitative (DVT/PE) 0.94 FEU/ug/m (0.27-0.49)
[2020-03-17 07:00] LABS: ALB/GLOB Ratio 0.9 RATIO (0.9-2.4); AST(SGOT) 36 U/L (15-37); Alanine Aminotransfer ALT/SGPT 38 U/L (16-61); Albumin, Serum 2.7 g/dL (3.2-5.0); Alkaline Phosphatase 64 U/L (45-117); Anion Gap 8 (5-15); BUN 21 mg/dL (7-18); BUN/Creat Ratio 26.5 RATIO (10-20); Calcium,Total 9.2 mg/dL (8.5-10.1); Chloride 105 mmol/L (98-107); Creatinine, Serum 0.79 mg/dL (0.70-1.30); EST Glomerular Filtration Rate 99 mL/min (>60); Est Glom Filt Rate - Afr Amer 120 mL/min (>60); Estimated Creatinine Clearance 54.15 ml/min; Globulin 2.9 g/dL (2.2-4.2); Glucose 90 mg/dL (74-106); Potassium 4.5 mmol/L (3.5-5.1); Protein, Total 5.6 g/dL (6.4-8.2); Sodium Level 137 mmol/L (136-145)
[2020-03-17] MEDS: Ipratropium/Albuterol Sulfate 3 ML AMPUL.NEB INHALATION ×2 (07:21→11:18)
[2020-03-17] MEDS: guaiFENesin 1,200 MG Tablet 1200 MG PO (09:27)
[2020-03-17] MEDS: Enoxaparin 40 MG/0.4 ML Syringe SC (09:27)
[2020-03-17] MEDS: Finasteride 5 MG Tablet PO (09:27)
[2020-03-17] MEDS: Vitamin E 400 UNITS Capsule PO (09:28)
[2020-03-17] MEDS: dexAMETHasone 4 MG Tablet 6 MG PO (09:28)
[2020-03-17] MEDS: 0.9% Saline Lock 10 ML Syringe IV (09:29)
--- NOTE | 2020-03-17 10:22 | PCM.DC ---
- Discharge Diagnoses Current Active Problems: Current Active and Chronic Problems Chronic hyponatremia (Acute) Hypoxia (Acute) BPH (benign prostatic hyperplasia) (Chronic) Asthma (Acute) COVID-19 (Acute) You will use the following diet at home:: Regular Your food should be the consistency of: Regular Discharge Activity: May Not Drive, - - self quarntine for 20 days since 03/10/2020 Weight Bearing Status: Weight bearing as tolerated Call your doctor if you observe: Fever of 101 or Higher, Coldness, Increased Pain, Numbness or Tingling, Change in Color, Inability to urinate, Inability to have a bowel movement, Shortness of breath, Dizziness, Fainting spells, Swelling in the ankles, Chest pain, Prolonged hiccoughing, Increased palpitations (irregular heartbeat), Calf discomfort, Uncontrolled pain Allergies/Adverse Reactions: Allergies ciprofloxacin [From Cipro] Adverse Reaction (Verified 03/15/20 09:21) Nausea/Vom/Diarrhea sulfamethoxazole [From Bactrim] Adverse Reaction (Verified 03/15/20 14:13) caused liver to shut down caused liver to shut down trimethoprim [From Bactrim] Adverse Reaction (Verified 03/15/20 14:13) caused liver to shut down caused liver to shut down Medications to take at Discharge Multivitamins,Therapeutic [Multivitamin] 1 tablet PO DAILY 01/29/13 [place]-3 Fatty Acids/Fish Oil [[place] 3 1,000 mg Softgel] 1 each PO DAILY 01/29/13 Saw [place] 160 mg PO DAILY 01/29/13 Vitamin E 400 units PO DAILY 01/29/13 Vit A/Vit C/Vit E/Zinc/Copper [Icaps Areds Formula Dr Tablet] 1 each PO DAILY 03/01/13 [place] 2,000 mg PO DAILY 09/05/16 Albuterol Sulfate [Albuterol Sulfate HFA] 1 puff INHALATION PRN PRN 03/15/20 Zinc Sulfate 220 mg PO DAILY 03/15/20 Apixaban [Eliquis] 2.5 mg PO BID #30 tab 03/17/20 Dexamethasone [Decadron] 6 mg PO DAILY 7 Days #7 tab 03/17/20 Guaifenesin [Mucinex] 1,200 mg PO BID #10 tab 03/17/20 The following prescriptions were given: Dexamethasone [Decadron] 6 mg PO DAILY 7 Days #7 tab Transmission Status: Pending to [id number] Apixaban [Eliquis] 2.5 mg PO BID #30 tab Transmission Status: Pending to [id number] Guaifenesin [Mucinex] 1,200 mg PO BID #10 tab Transmission Status: Pending to [id number] Primary Care Physician: Santos Franz MD [Primary Care Provider] - Please follow up with your Primary Care Physician in: in 2 weeks Test Results: Test results from this visit will be discussed in further detail at your follow-up appointment, if applicable.
--- NOTE | 2020-03-17 10:25 | PCM.DC.SUM ---
Discharge Date and Diagnosis - Problem List Patient Problems: Active and Suspected Problems Chronic hyponatremia (Acute) Hypoxia (Acute) Asthma (Acute) COVID-19 (Acute) Date of Admission: 03/15/20 Date of Discharge: 03/17/20 - Primary Discharge Diagnosis Acute Problems: Active Problems Chronic hyponatremia (Acute) Hypoxia (Acute) Asthma (Acute) COVID-19 (Acute) - Secondary Discharge Diagnosis Chronic Problems: Chronic Problems BPH (benign prostatic hyperplasia) (Chronic) Hospital Course and Treatment Summary of Care Provided: [] The patient is a 84 year old M with no significant past medical history except BPH came to ED with cough, shortness of breath fever for last 5 days. He also had mild diaphoresis but denies chest pain/tightness or heaviness. EKG shows normal sinus rhythm at 64 beats minute with LVH, LAE, QTC 427 ms. Sodium is 119. Serum osmolarity 246. Previous sodium was 136 in April 2013. Urine osmolarity 288, urine sodium 19. 1. Chronic hypotonic hypovolemic severe hyponatremia: Patient is being admitted in PCU. Urine osmolality more than serum osmolality. Patient denies any symptoms or conditions of hypovolemia. Serum sodium was monitored. Started on IV fluid normal saline. Serum sodium went up from 119 233 and then 137. Water Purifier Operator was consulted. Patient denies any history of cancer, chronic smoking emphysema or COPD. 2. COVID-19 bilatera lower lobes pneumonia with history of chronic stable asthma: Patient is not on inhaler at home. Does not seem to be in acute asthma exacerbation but symptoms are more suggestive of acute bronchitis probably viral. Although rapid antigen SARS-CoV-2 was negative but COVID-19 PCR came positive. Respiratory panel negative. Patient started on Decadron and remdesivir in the ER. On incentive spirometry and chest physiotherapy. Bronchodilator as needed.. Chest x-ray done in the ER shows mild residual bilateral pulmonary infiltrate although it is better than the previous chest x-ray on 03/13 which showed bilateral peripheral groundglass infiltrates preferentially peripheral and lower lobes, left lingular lobe scarring and bronchiectasis. CTA chest individually reviewed. Did not show PE but bilateral groundglass opacities may lead lower lobes. Patient is discharged on 7 more days of Decadron, Eliquis 2.5 mg twice daily for 2 more weeks and Mucinex. 3. BPH: Patient used to follow Dr. Dinero and had cystoscopy, TURP and right scrotal orchiectomy for hydrocele. Currently patient is on saw palmetto. 4. VTE prophylaxis: On Lovenox 40 milligrams subcutaneous twice daily Discharge medication reconciliation done. Discharge follow-up instructions completed. Discharge process discussed with the patient and all questions were answered to patient's satisfaction. Total time spent, exact 35 minutes on discharge meds reconciliation, examination, coordination of care with nurses and ancillary staff, review of imaging and blood test and discussion with the patient on follow-up instructions Patient Problems: Active and Suspected Problems Chronic hyponatremia (Acute) Hypoxia (Acute) Asthma (Acute) COVID-19 (Acute) Objective: Seen and examined. Patient denies shortness of breath. Occasional cough with moist sputum. No fever. Heart rate and blood pressure controlled. Pulse ox 97% on room air. Physical exam General: Alert, Oriented x3, Cooperative HEENT: Atraumatic, PERRLA, EOMI, Normocephalic Oral: No Gingival or Mucosal Lesions/ Ulcerations Neck: Supple, No JVD, Negative Carotid Bruits Lungs: Air entry diminished in bilateral lung bases. No crepitation/rhonchi Cardiovascular: Regular rate, Regular Rhythm, Normal S1, Normal S2, No murmurs Abdomen: Bowel Sounds Present, Soft, Non Tender, Non-Distended : No renal angle tenderness. No suprapubic tenderness. Extremities: No edema, Capillary Refill Less than 3 Seconds Skin: No rashes, No breakdown Musculoskeletal: No Tenderness to Palpation of Joints or Extremities Neurological: Cranial nerves II-XII grossly intact, Deep Tendon Reflexes 2+/4 and Symmetrical, Neuro grossly intact Psych/Mental Status: Normal Affect, Appropriate. - Physical Exam Vitals/I&O's: Vital Signs Temp Pulse Resp BP Pulse Ox 97.5 F L 66 18 122/61 H 96 03/17/20 09:24 03/17/20 09:24 03/17/20 09:24 03/17/20 09:24 03/17/20 09:24 Oxygen Flow Rate (L/min) 2 Oxygen Delivery Method Room Air Weight: 171 lb 15.369 oz Body Mass Index (BMI) 26.1 Intake and Output for Last 24 Hours 03/15/20 03/16/20 03/17/20 23:59 23:59 23:59 Intake Total 2207.5 / 2207.5 610 / 970 360 / 360 Balance 2207.5 / 2207.5 610 / 970 360 / 360 Microbiology Past 72 Hours 03/15/20 19:35 Mucosa - Nasopharyngeal Respiratory Panel (PCR) - Final 03/15/20 09:32 Mucosa - Nose SARS-CoV-2 Antigen (Rapid) - Final Laboratory Results 03/17/20 05:46: WBC 7.4, RBC 4.35 L, Hgb 12.1 L, Hct 36.3 L, MCV 83.4, MCH 27.8, MCHC 33.3, RDW Std Deviation 39.5, RDW Coeff of Jaspreet 13.0, Plt Count 419, MPV 10.0 03/17/20 05:46: D-Dimer Quant (PE/DVT) 0.94 H* 03/17/20 05:46: Sodium 137, Potassium 4.5, Chloride 105, Carbon Dioxide 24.0, Anion Gap 8, BUN 21 H, Creatinine 0.79, Estim Creat Clear Calc 54.15, Est GFR (MDRD) Af Amer 120, Est GFR (MDRD) Non-Af 99, BUN/Creatinine Ratio 26.5 H, Glucose 90, Calcium 9.2, Total Bilirubin 0.50, AST 36, ALT 38, Alkaline Phosphatase 64, Total Protein 5.6 L, Albumin 2.7 L, Globulin 2.9, Albumin/Globulin Ratio 0.9 Current Medications Acetaminophen (Acetaminophen 325 Mg Tablet) 650 mg PO Q6H PRN PRN PRN Reason: Pain Score 1-10/Temp > 100.7 F Last Admin: 03/15/20 20:37 Dose: 650 mg Documented by: Al Hydroxide/Mg Hydroxide (Mag Hydrox/Al Hydrox/Simeth 30 Ml Udc) 30 ml PO Q6H PRN PRN PRN Reason: Gastric Burning Albuterol Sulfate (Albuterol 2.5 Mg/3 Ml Vial.Neb.) 2.5 mg INHALATION Q2H PRN PRN PRN Reason: SOB/Wheezing Albuterol/Ipratropium (Ipratropium/Albuterol Sulfate 3 Ml Ampul.Neb) 3 ml INHALATION Q4HWA.RT SAURABH Last Admin: 03/17/20 07:21 Dose: 3 ml Documented by: Dexamethasone (Dexamethasone 4 Mg Tablet) 6 mg PO DAILY SAURABH Stop: 03/25/20 10:01 Last Admin: 03/17/20 09:28 Dose: 6 mg Documented by: Enoxaparin Sodium (Enoxaparin 40 Mg/0.4 Ml Syringe) 40 mg SC BID [facility] Last Admin: 03/17/20 09:27 Dose: 40 mg Documented by: Finasteride (Finasteride 5 Mg Tablet) 5 mg PO DAILY [facility] Last Admin: 03/17/20 09:27 Dose: 5 mg Documented by: Guaifenesin (Guaifenesin 1,200 Mg Tablet) 1,200 mg PO BID [facility] Last Admin: 03/17/20 09:27 Dose: 1,200 mg Documented by: Remdesivir 100 mg/ Sodium (Chloride) 250 mls @ 125 mls/hr IV DAILY [facility] Stop: 03/19/20 11:59 Last Admin: 03/17/20 09:28 Dose: 125 mls/hr Documented by: Sodium Chloride () 250 mls @ 15 mls/hr IV .[id number] PRN PRN Reason: Additional IVPB Infusion Melatonin (Melatonin 3 Mg Tablet) 3 mg PO QHS PRN PRN PRN Reason: INSOMNIA Last Admin: 03/15/20 20:38 Dose: 3 mg Documented by: Morphine Sulfate (Morphine 2 Mg/Ml Syringe) 2 mg IV Q3H PRN PRN PRN Reason: Pain Score 6-10 Nitroglycerin (Nitroglycerin (Inpatient Use) 0.4 Mg Tab.Subl) 0.4 mg SUBLINGUAL Q5M PRN PRN Reason: CARDIAC/CHEST PAIN Oxycodone HCl (Oxycodone 5 Mg Tablet) 5 mg PO Q4H PRN PRN PRN Reason: Pain Score 4-5 Prochlorperazine Edisylate (Prochlorperazine 10 Mg/2 Ml Vial) 5 mg IV Q4H PRN PRN PRN Reason: Breakthrough Nausea/Vomiting Senna/Docusate Sodium (Senna/Docusate Sodium 1 Tablet) 2 tablet PO BID PRN PRN PRN Reason: Constipation Sodium Chloride (0.9% Saline Lock 10 Ml Syringe) 10 - 40 ml IV UD PRN PRN Reason: SALINE FLUSH Last Admin: 03/17/20 09:29 Dose: 20 ml Documented by: Vitamin E (Vitamin E 400 Units Capsule) 400 units PO DAILY [facility] Last Admin: 03/17/20 09:28 Dose: 400 units Documented by: Zinc Sulfate (Zinc Sulfate (50mg Elemental) 220 Mg Capsule) 220 mg PO DAILY SAUR[facility] Last Admin: 03/17/20 09:27 Dose: 220 mg Documented by: Discharge Activity: May Not Drive, - - self quarntine for 20 days since 03/10/2020 Weight Bearing Status: Weight bearing as tolerated Call your doctor if you observe: Fever of 101 or Higher, Coldness, Increased Pain, Numbness or Tingling, Change in Color, Inability to urinate, Inability to have a bowel movement, Shortness of breath, Dizziness, Fainting spells, Swelling in the ankles, Chest pain, Prolonged hiccoughing, Increased palpitations (irregular heartbeat), Calf discomfort, Uncontrolled pain Home Medications: Medications to take at Discharge Multivitamins,Therapeutic [Multivitamin] 1 tablet PO DAILY 01/29/13 [place]-3 Fatty Acids/Fish Oil [[place] 3 1,000 mg Softgel] 1 each PO DAILY 01/29/13 Saw [place] 160 mg PO DAILY 01/29/13 Vitamin E 400 units PO DAILY 01/29/13 Vit A/Vit C/Vit E/Zinc/Copper [Icaps Areds Formula Dr Tablet] 1 each PO DAILY 03/01/13 [place] 2,000 mg PO DAILY 09/05/16 Albuterol Sulfate [Albuterol Sulfate HFA] 1 puff INHALATION PRN PRN 03/15/20 Zinc Sulfate 220 mg PO DAILY 03/15/20 Apixaban [Eliquis] 2.5 mg PO BID #30 tab 03/17/20 Dexamethasone [Decadron] 6 mg PO DAILY 7 Days #7 tab 03/17/20 Guaifenesin [Mucinex] 1,200 mg PO BID #10 tab 03/17/20 Following Prescriptions Were Given to Patient: Dexamethasone [Decadron] 6 mg PO DAILY 7 Days #7 tab Transmission Status: [id number] Apixaban [Eliquis] 2.5 mg PO BID #30 tab Transmission Status: [id number] Guaifenesin [Mucinex] 1,200 mg PO BID #10 tab Transmission Status: [id number] Primary Care Physician: Santos Franz MD [Primary Care Provider] - Please follow up with your Primary Care Physician in: in 2 weeks Medical Necessity - Tobacco Use Smoking Status: Former smoker Meaningful Use Info Meaningful Use Diagnoses (Choose all that apply): None applicable Inpatient E&M: 40001 Disch Hosp
--- NOTE | 2020-03-17 12:42 | CM.UR ---
reviewed chart for need for oxygen. Patient did not meet criteria for home o2. Brain Hobbs RN, CCM
[2020-03-19 11:39] LABS: Pathologist Review Reviewed
--- NOTE | 2020-03-19 15:25 | CASEMGMT ---
[facility] CM DC PHONE CALL DC DATE: 03/19/20 DC DISPOSITION:Home DC DIAGNOSIS: SARS COVID 2 Attempted call to phone.No answer and no messaging with name identifier. Jseus LORENZO RN ACM
== END 2020-03-17 13:50 | disposition home or self-care (01) | DRG 177 ==
LOC: ED 13:02 → MS2 03-16 07:19
PROVIDERS: Internal Medicine Infectious Disease; Admitting Provider Internal Medicine; Emergency Provider Emergency Medicine; PCP Family Medicine; Visit Provider Internal Medicine
DX: U07.1 COVID-19 (principal); J12.82 Pneumonia due to coronavirus disease 2019; E87.1 Hypo-osmolality and hyponatremia; R09.02 Hypoxemia; J45.909 Unspecified asthma, uncomplicated; J20.8 Acute bronchitis due to other specified organisms; N40.0 Benign prostatic hyperplasia without lower urinary tract symptoms; E86.1 Hypovolemia; Z87.891 Personal history of nicotine dependence
CPT/HCPCS: 36415; 71045; 71046; 71275; 80048; 80053; 81001; 83735; 83880; 83930; 83935; 84100; 84300; 84443; 84484; 85025; 85027; 85379; 87426; 87633; 87635; 93005; 94640; 94667; 94668; 97163; 99251; 99285; J7030; J7050; Q9967; A4216; G0463; U0002

== ENCOUNTER 2020-09-17 09:59 | Observation (INO) | payer MEDICARE, SELFPAY ==
[2020-03-15 14:55] VITALS: BMI 26.1
[2020-09-17] VITALS (10 sets, daily range): BP systolic 152–161; BP diastolic 72–86; PULSE 46–72; RESP 11–16; TEMP 36.5–37.1; O2SAT 96–100; BMI 25.8; BMI 26.8
--- NOTE | 2020-09-17 10:15 | RAD_ITS ---
STUDY: X-RAY CHEST REASON FOR EXAM: Male, 85 years old. Chest pain TECHNIQUE: Frontal view of the chest COMPARISON: 03/15/20 FINDINGS: The lungs are clear. There are no pleural effusions. There is no pneumothorax. The heart is normal in size. The visualized osseous structures are within normal limits. RAD/Chest 1 View (Portable) IMPRESSION: No acute thoracic pathology. Electronically Signed: Alex Rahman MD at 11:00 EDT Tel , Service support ,
--- NOTE | 2020-09-17 10:15 | EKG12_ITS ---
Test Reason : L ARM PAIN Blood Pressure : / mmHG Vent. Rate : 055 BPM Atrial Rate : 055 BPM P-R Int : 236 ms QRS Dur : 090 ms QT Int : 432 ms P-R-T Axes : 118 195 171 degrees QTc Int : 413 ms Suspect arm lead reversal, interpretation assumes no reversal Sinus bradycardia with 1st degree A-V block T wave abnormality, consider inferior ischemia Recommend Repeat ECG Abnormal ECG Confirmed by REBECCA CAI, BELLA ([id number]), multimedia editor LATANYA WOODS ([id number]) on 09/20/2020 12:43:16 PM Referred By: HELDER/JOSE ELIAS Confirmed By:BELLA FERNANDEZ MD
--- NOTE | 2020-09-17 10:17 | EDS_ITS ---
HPI History of Present Illness Chief Complaint: Chest Pain Informant: patient and spouse/S.O. Narrative Narrative: Patient presents with left-sided chest pain. This has been going on for about 2 weeks. There is some component of it that is continuous. However, it gets worse with activity and walking. When he gets active he also gets some dyspnea and some mild nausea. He has not vomited. He does get increased belching when the symptoms are worse. 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 Moving the shoulder and chest wall does not really change the pain to any great degree. It is not pleuritic. He is not short of breath sitting still. When the pain is bad it does radiate down the arm on the left side. He has never had cardiac disease. He has never had stress test or heart catheterization. He is on no regular medicines other than vitamins. He has no history of high blood pressure, diabetes, cholesterol or strong family history of heart disease. He quit smoking decades ago. He did have Covid earlier this year but he had felt as though he has been recovered for 1 or 2 months. [facility] Medical History Asthma Home Medications multivitamin with folic acid [Thera] 1 tab PO DAILY 01/29/13 [History Last Taken 03/15/20] omega-3 fatty acids-fish oil 1 ea PO DAILY 01/29/13 [History Last Taken 03/15/20] saw palmetto 160 mg PO DAILY 01/29/13 [History Last Taken 03/15/20] vitamin E (dl, acetate) 400 units PO DAILY 01/29/13 [History Last Taken 03/15/20] vitamins A,C,T-fuka-dwzwhj [ICaps AREDS] 1 ea PO DAILY 03/01/13 [History Last Taken 03/15/20] alfalfa 2,000 mg PO DAILY 09/05/16 [History Last Taken 03/15/20] albuterol sulfate 1 puff INHALATION PRN PRN 03/15/20 [History Last Taken 03/15/20] zinc sulfate 220 mg PO DAILY 03/15/20 [History Last Taken 03/15/20] Allergy/AdvReac Type Severity Reaction Status Date / Time ciprofloxacin [From Cipro] AdvReac Nausea/Vom/ Verified 09/17/20 10:00 Diarrhea sulfamethoxazole AdvReac caused Verified 09/17/20 10:00 [From Bactrim] liver to shut down trimethoprim [From Bactrim] AdvReac caused Verified 09/17/20 10:00 liver to shut down Social History Smoking Status: Former smoker ROS ROS ED Constitutional Constitutional ED: Denies chills or fever(s) Eyes Eyes: Denies blurry vision ENT ENT ED: Denies sore throat Cardiovascular Cardiovascular: Reports chest pain; Denies palpitations or racing heartbeat Respiratory/Chest Respiratory/Chest: Reports dyspnea on exertion; Denies cough or sputum Gastrointestinal Gastrointestinal: Reports nausea; Denies abdominal pain, diarrhea or vomiting Musculoskeletal Musculoskeletal: Reports myalgias; Denies arthralgias, back pain or neck pain Integumentary Denies rash Neurologic Neurologic: Denies paresthesias or weakness Psychiatric Psychiatric: Denies anxiety Hematologic/Lymphatic Hematologic/Lymphatic: Denies easy bleeding or easy bruising EXAM Physical Exam Const Vital Signs: 09/17/20 10:00 09/17/20 10:11 09/17/20 10:20 Temperature 97.7 F L Temperature Source Temporal Pulse Rate 72 Respiratory Rate 16 Respiratory Effort Normal Non-Labored Blood Pressure 153/86 H Blood Pressure Mean 108 Pulse Ox 100 97 Oxygen Delivery Method Room Air Room Air 09/17/20 12:00 Temperature Temperature Source Pulse Rate 51 L Respiratory Rate 11 L Respiratory Effort Blood Pressure 160/74 H Blood Pressure Mean 102 Pulse Ox 97 Oxygen Delivery Method Room Air Positive well nourished and well developed General Appearance ED: well developed and NAD HEENT normocephalic and atraumatic; Negative for trauma Eyes General Eye ED: Negative for pale conjunctiva or scleral icterus Neck supple and no JVD General: Negative for tenderness Chest Wall inspection of chest normal and palpation of chest normal Chest: Negative for tenderness Resp normal respiratory effort and clear to auscultation bilaterally Resp Narrative: He has mild tenderness to the left paraspinal but this is is not the only area of discomfort that he has. Effort and Inspection: respiratory distress Cardio regular rhythm Rate: bradycardia GI normal to inspection, nondistended, normoactive bowel sounds, soft to palpation, non-tender and non-distended Back/Spine no CVA tenderness Extremity normal to inspection Extremity Narrative: Peripheral pulses are equal and normal. General Extremety ED: Negative for edema or tenderness General Extremity: Negative for edema Neuro oriented x3 Sensorium / Orientation: awake and alert Psych mental status grossly normal Skin no rashes or lesions noted Heart Score History: Highly Suspicious ECG: Nonspecific Repolarization Age: >/= 65 years Risk Factors: No Risk Factors Troponin: </= Normal Limit Score: 5 MDM MDM MDM Narrative Medical decision making narrative: X-rays and blood work including troponin which show no acute process. However, this patient has a concerning story. He has some ongoing pain but if he gets active or even walks he gets more pain, and develops dyspnea and some mild nausea. This is concerning for heart disease. He has no pleuritic pain. He was having some dyspnea after Covid but that seemed to have resolved. He now recalls that he might have had a stress test a few years ago but is not sure the exact date. He does have a heart score of 5 mostly due to his age and his concerning story. Even though he has a area of muscular tenderness on his back this does not explain all the other symptoms that he is having including anterior chest pain and radiation down the arm. I did discuss case with Dr. Hernandes. Patient will be brought into the hospital. Lab Data Attestation: I reviewed the patient's lab results. Labs: Laboratory Results - last 24 hr 09/17/20 09/17/20 10:18 10:18 WBC 4.2 L RBC 4.63 Hgb 13.2 Hct 40.5 MCV 87.5 MCH 28.5 MCHC 32.6 RDW Std Deviation 44.3 H RDW Coeff of Jaspreet 13.8 Plt Count 232 MPV 9.4 Immature Gran % (Auto) 0.200 Neut % (Auto) 60.2 Lymph % (Auto) 22.3 [place] % (Auto) 12.1 H Eos % (Auto) 4.0 Baso % (Auto) 1.2 H Absolute Neuts (auto) 2.5 Absolute Lymphs (auto) 0.94 Nucleated RBC % 0 Sodium 141 Potassium 4.0 Chloride 109 H Carbon Dioxide 28.0 Anion Gap 4 L BUN 15 Creatinine 0.90 Estim Creat Clear Calc 59.11 Est GFR (MDRD) Af Amer 103 Est GFR (MDRD) Non-Af 85 BUN/Creatinine Ratio 16.6 Glucose 96 Calcium 9.4 Troponin I High Sens 12.3 Radiography Diagnostic Testing: Radiology Impression Chest X-Ray 09/17/20 10:15 IMPRESSION: No acute thoracic pathology. Electronically Signed: Alex Rahman MD at 11:00 EDT Tel , Service support , EKG Initial EKG: Comments: EKG done for chest pain read by me shows sinus rhythm with bradycardic rate at 55. No ventricular ectopy. No acute ST elevation or depression. RI interval is a little long showing first-degree AV block. QRS duration and QTC are normal. Discharge Plan Dx/Rx/DC Orders Clinical Impression: Chest pain Disposition Disposition: Acute Care Hospital [facility]
[2020-09-17] MEDS: Aspirin 81 MG TAB.CHEW 324 MG PO (10:25)
[2020-09-17 10:31] LABS: Absolute Lymphocyte Count 0.94 X10^3/uL (0.83-4.51); Absolute Neutrophil Count 2.5 X10^3/uL (2.0-7.7); Basophil# 0.05 X10^3/uL; Basophil% 1.2 % (0-1); Eosinophil# 0.17 X10^3/uL; Hematocrit 40.5 % (40-54); Hemoglobin 13.2 g/dL (13.0-16.5); Lymphocyte # 0.94 X10^3/ul (0.83-4.51); Lymphocyte % 22.3 % (19-41); Mean Corp Hgb Conc 32.6 g/dL (32-36); Mean Corpuscular Hgb 28.5 pg (27.0-32.0); Mean Corpuscular Volume 87.5 fL (80-94); Mean Platelet Vol. 9.4 fl (6.2-12.0); Monocyte# 0.51 X10^3/uL; Monocyte% 12.1 % (0-10); NRBC Flagged by Analyzer 0 % (0-5); Neutrophil # 2.53 X10^3/uL (2.7-7.7); Neutrophil % 60.2 % (47-70); Platelet Count 232 K/mm3 (150-450); RBC Distribution Width CV 13.8 % (11.6-14.6); RBC Distribution Width SD 44.3 fl (35.1-43.9); Red Blood Count 4.63 M/mm3 (4.6-6.2); White Blood Count 4.2 K/mm3 (4.4-11.0)
[2020-09-17 10:48] LABS: Anion Gap 4 (5-15); BUN 15 mg/dL (7-18); BUN/Creat Ratio 16.6 RATIO (10-20); Calcium,Total 9.4 mg/dL (8.5-10.1); Chloride 109 mmol/L (98-107); EST Glomerular Filtration Rate 85 mL/min (>60); Est Glom Filt Rate - Afr Amer 103 mL/min (>60); Estimated Creatinine Clearance 59.11 ml/min; Glucose 96 mg/dL (74-106); Sodium Level 141 mmol/L (136-145); Troponin-I HS 12.3 pg/mL (3.0-78.5)
--- NOTE | 2020-09-17 12:56 | NURSING ---
PCU OBS RENÉE HEALY
--- NOTE | 2020-09-17 13:47 | PCM.HP.STD ---
HPI - General General Date of Admission: 09/17/20 Date of Service: 09/17/20 Chief Complaint: chest pain HPI Narrative AMARIS BENITEZ, is a 85 M who presents several week history of chest pain. Additionally has been having dyspnea that is worse with exertion. However, patient had Covid back in February and has had shortness of breath since then and though has gotten better as not completely gotten back to normal. Patient presented to the emergency room and underwent a work-up that is thus far unremarkable. The hospitalist service was contacted for mission for further chest pain evaluation. Patient denies any history of chest pain such as this in the past. [facility] Medical History Asthma Home Medications multivitamin with folic acid [Thera] 1 tab PO DAILY 01/29/13 [History Last Taken 09/17/20] omega-3 fatty acids-fish oil 1 ea PO DAILY 01/29/13 [History Last Taken 09/17/20] saw palmet[place] 160 mg PO DAILY 01/29/13 [History Last Taken 09/17/20] vitamin E (dl, acetate) 400 units PO DAILY 01/29/13 [History Last Taken 09/17/20] alfalfa 2,000 mg PO DAILY 09/05/16 [History Last Taken 09/17/20] zinc sulfate 220 mg PO DAILY 03/15/20 [History Last Taken 09/17/20] Allergy/AdvReac Type Severity Reaction Status Date / Time ciprofloxacin [From Cipro] AdvReac Nausea/Vom/ Verified 09/17/20 10:00 Diarrhea sulfamethoxazole AdvReac caused Verified 09/17/20 10:00 [From Bactrim] liver to shut down trimethoprim [From Bactrim] AdvReac caused Verified 09/17/20 10:00 liver to shut down Family History (Updated 09/17/20 @ 13:[address] Leighton Durant DO) Other Heart disease Social History Smoking Status: Former smoker ROS ROS Narrative All review of systems were negative except as mentioned above in the history of present illness and the other review of systems. Vital Signs Vital Signs Vital Signs: 09/17/20 10:00 09/17/20 10:11 09/17/20 10:20 Temperature 36.5 C L Temperature Source Temporal Pulse Rate 72 Respiratory Rate 16 Respiratory Effort Normal Non-Labored Blood Pressure 153/86 H Blood Pressure Mean 108 Pulse Ox 100 97 Oxygen Delivery Method Room Air Room Air 09/17/20 12:00 09/17/20 13:00 Temperature 37.1 C Temperature Source Oral Pulse Rate 51 L 52 L Respiratory Rate 11 L 13 Respiratory Effort Blood Pressure 160/74 H 161/76 H Blood Pressure Mean 102 104 Pulse Ox 97 96 Oxygen Delivery Method Room Air Room Air Weight Weight: 77.111 kg Body Mass Index (BMI) 25.8 Physical Exam Narrative Reproducible left upper chest and upper back tenderness. Const alert General Appearance: cooperative HEENT normocephalic and hearing grossly normal bilaterally Neck no lymphadenopathy Resp normal respiratory effort, no retractions, no use of accessory muscles and clear to auscultation bilaterally Cardio regular rate, regular rhythm, S1 normal heart sound and S2 normal heart sound GI normal to inspection, nondistended, normoactive bowel sounds, soft to palpation and non-distended Neuro Sensorium / Orientation: alert Results Lab / Micro Data Attestation: I reviewed the patient's lab results. Result Diagrams: 09/17/20 10:18 09/17/20 10:18 Labs: Laboratory Results - last 24 hr 09/17/20 10:18: WBC 4.2 L, RBC 4.63, Hgb 13.2, Hct 40.5, MCV 87.5, MCH 28.5, MCHC 32.6, RDW Std Deviation 44.3 H, RDW Coeff of Jaspreet 13.8, Plt Count 232, MPV 9.4, Immature Gran % (Auto) 0.200, Neut % (Auto) 60.2, Lymph % (Auto) 22.3, [place] % (Auto) 12.1 H, Eos % (Auto) 4.0, Baso % (Auto) 1.2 H, Absolute Neuts (auto) 2.5, Absolute Lymphs (auto) 0.94, Nucleated RBC % 0 09/17/20 10:18: Sodium 141, Potassium 4.0, Chloride 109 H, Carbon Dioxide 28.0, Anion Gap 4 L, BUN 15, Creatinine 0.90, Estim Creat Clear Calc 59.11, Est GFR (MDRD) Af Amer 103, Est GFR (MDRD) Non-Af 85, BUN/Creatinine Ratio 16.6, Glucose 96, Calcium 9.4, Troponin I High Sens 12.3 EKG Initial EKG: Attestation: I personally reviewed and interpreted this EKG as follows: Prior EKG tracings: available for review EKG Rhythm Intrepretation: Sinus Rhythm and 1st Degree AVB Radiology Impression Chest X-Ray 09/17/20 10:15 IMPRESSION: No acute thoracic pathology. Electronically Signed: Alex Rahman MD at 11:00 EDT Tel , Service support , Assessment & Plan Assessment/Plan (1) Chest pain: QUALIFIERS: Chest pain type: unspecified Qualified Code(s): R07.9 - Chest pain, unspecified PLAN: 1. Chest pain Heart score of 5 Concern is actually musculoskeletal rather than cardiac. Patient does have dyspnea but this appears to be more related with his prior history of Covid has not been a new development. Plan: Patient did receive aspirin in the emergency room. Plan is for a chemical stress test on the third. 2. VTE prophylaxis not indicated as patient is observation status Charges/Coding Visit Charges OBSV E&M: 26622 Initial observation care L2
--- NOTE | 2020-09-17 14:07 | EKG12_ITS ---
Test Reason : Blood Pressure : / mmHG Vent. Rate : 043 BPM Atrial Rate : 043 BPM P-R Int : 252 ms QRS Dur : 094 ms QT Int : 472 ms P-R-T Axes : 055 -12 016 degrees QTc Int : 398 ms Marked sinus bradycardia with marked sinus arrhythmia with 1st degree A-V block Abnormal ECG Confirmed by REBECCA CAI, BELLA ([id number]), content editor LATANYA WOODS ([id number]) on 09/21/2020 9:06:49 AM Referred By: MARCELLA Confirmed By:BELLA FERNANDEZ MD
[2020-09-17 16:34] LABS: Magnesium 2.2 mg/dL (1.6-2.6)
[2020-09-18 02:20] VITALS: BP 136/72; PULSE 52; RESP 16; TEMP 36.6; O2SAT 97
[2020-09-18 02:32] VITALS: PULSE 54
[2020-09-18 06:20] VITALS: BP 154/77; PULSE 52; RESP 16; TEMP 36.6; O2SAT 96
[2020-09-18] MEDS: Aspirin E.C. 81 MG Tablet PO (06:30)
[2020-09-18 07:00] VITALS: PULSE 45
[2020-09-18 10:11] VITALS: BP 159/77; PULSE 58; RESP 18; TEMP 36.3; O2SAT 97
--- NOTE | 2020-09-18 13:03 | STRESSREP_ITS ---
Stress Test Report Date: 09-18-2020 Procedure: Exercise tolerance test/imaging study Indications: Chest pain Consent: Per the patient Procedure: The patient exercised on a Junaid protocol for 6 minutes completing Stage II achieving a peak heart rate of 117 bpm (86% predicted maximal heart rate) with a peak blood pressure 182/88 mmHg and a peak MET capacity of 7 METs. The baseline ECG demonstrated sinus bradycardia. The peak exercise ECG demonstrated no obvious ECG changes. There were rare PVCs pretest, during exercise, and recovery. The functional capacity was considered good. There was no complaint of chest discomfort during exercise or recovery. The examination was discontinued secondary to dyspnea. Impression: 1. Technically adequate (percent predicted maximal heart rate greater than 85%) exercise tolerance test 2. Peak exercise ECG with no obvious ECG change 3. There were rare PVCs pretest, during exercise, and recovery 4. Nuclear images pending Myocardial perfusion imaging study: Technique: The patient was injected with 11.7 mCi of technetium 99m Cardiolite and subsequently rest SPECT Cardiolite nuclear imaging was obtained in the horizontal long, vertical long, and short axis views. The patient exercised on a Junaid protocol for 6 minutes completing Stage II achieving a peak heart rate of 117 bpm (86% predicted maximal heart rate) with a peak blood pressure 182/88 mmHg and a peak MET capacity of 7 METs. The patient was injected with 34.3 mCi of technetium 99m Cardiolite and subsequently stress SPECT Cardiolite nuclear imaging was obtained in the horizontal long, vertical long, and short axis views. A gated Cardiolite study at peak stress was obtained. Interpretation: Rest and stress SPECT Cardiolite nuclear imaging status post realignment, normalization, and attenuation correction, demonstrates the appearance of relative uniform tracer uptake and myocardial perfusion appearing within normal limits. There is end systolic thickening and brightening. The gated Cardiolite study demonstrates myocardial thickening and inward wall motion. The reported LVEF is 67%. Impression: 1. Rest and stress SPECT Cardiolite nuclear imaging demonstrate relative uniform tracer uptake and myocardial perfusion appearing within normal limits. 2. The gated Cardiolite study reports an LVEF of 67%. This note was generated with [employer] software. It may contain incorrect words, spelling, and punctuation that were not noted in checking the note before signing.
--- NOTE | 2020-09-18 13:19 | PCM.DC ---
Discharge Instructions Diet Discharge Diet: No restrictions Activity Discharge Activity: Return to Normal Activity Follow Up Care Test Results: Test results from this visit will be discussed in further detail at your follow-up appointment, if applicable. Discharge Plan Admission Admit Date/Time: 09/17/20 13:44 Attending Provider: Leighton Durant Primary Care Provider: Santos Franz Instructions Patient Instructions: ED Chest Pain, Noncardiac Discharge Orders/Prescriptions Prescriptions: Continued saw palmetto 500 MG capsule 160 mg PO DAILY RF: 0 omega-3 fatty acids-fish oil 1 EACH capsule 1 ea PO DAILY RF: 0 vitamin E (dl, acetate) 400 UNITS capsule 400 units PO DAILY RF: 0 multivitamin with folic acid [Thera] 1 TABLET tablet 1 tab PO DAILY RF: 0 alfalfa 250 MG tablet 2,000 mg PO DAILY RF: 0 zinc sulfate 220 MG tablet 220 mg PO DAILY RF: 0 Referrals / Follow Up: Santos Franz MD [Primary Care Provider] - Within 2 Weeks Disposition Disposition (needs filled in before D/C Order can be placed): Home, Self Care
--- NOTE | 2020-09-18 13:20 | PCM.DC.SUM ---
Providers Date of Admission: 09/17/20 Date of Discharge: 09/18/20 Primary Care Physician: Dr. Santos Franz MD Reason For Visit: CHEST PAIN Diagnosis Discharge Diagnosis (1) Chest pain: Status: Acute Code(s): R07.9 - Chest pain, unspecified Qualifiers: Chest pain type: unspecified Qualified Code(s): R07.9 - Chest pain, unspecified Medications at Discharge Home Medications multivitamin with folic acid [Thera] 1 tab PO DAILY 01/29/13 omega-3 fatty acids-fish oil 1 ea PO DAILY 01/29/13 saw palmetto 160 mg PO DAILY 01/29/13 vitamin E (dl, acetate) 400 units PO DAILY 01/29/13 alfalfa 2,000 mg PO DAILY 09/05/16 zinc sulfate 220 mg PO DAILY 03/15/20 Hospital Course Operations None Procedures Stress test Summary of Care Provided Minutes Spent on Discharge: 26 Hospital Course: 85-year-old male presents with several week history of left sided chest pain. On exam, patient has reproducible left-sided chest tenderness. Patient did undergo stress test that was unremarkable. Patient hospitalization was uncomplicated but he did have bradycardia but was asymptomatic. Patient despite his age is very active and still works. Patient will be discharged in stable condition peer Physical Exam HEENT normocephalic Cardio regular rate, regular rhythm, S1 normal heart sound and S2 normal heart sound GI normal to inspection, nondistended, normoactive bowel sounds, soft to palpation, non-tender and non-distended Weight / BMI Weight Weight: 80 kg Body Mass Index (BMI) 26.8 ABG / Lab / Microbiology Data Result Diagrams: 09/17/20 10:18 09/17/20 10:18 Laboratory: Laboratory Results - last 24 hr 09/17/20 10:18: Magnesium 2.2 09/17/20 15:45: Troponin I High Sens 15.0 09/17/20 19:40: Troponin I High Sens 15.0 D/C Instructions Discharge Diet: No restrictions Meaningful Use Info Meaningful Use Diagnoses (Choose all that apply): None applicable Discharge Plan Admission Admit Date/Time: 09/17/20 13:44 Attending Provider: Leighton Durant Primary Care Provider: Santos Franz Instructions Patient Instructions: ED Chest Pain, Noncardiac Discharge Orders/Prescriptions Prescriptions: Continued saw palmetto 500 MG capsule 160 mg PO DAILY RF: 0 omega-3 fatty acids-fish oil 1 EACH capsule 1 ea PO DAILY RF: 0 vitamin E (dl, acetate) 400 UNITS capsule 400 units PO DAILY RF: 0 multivitamin with folic acid [Thera] 1 TABLET tablet 1 tab PO DAILY RF: 0 alfalfa 250 MG tablet 2,000 mg PO DAILY RF: 0 zinc sulfate 220 MG tablet 220 mg PO DAILY RF: 0 Referrals / Follow Up: Santos Franz MD [Primary Care Provider] - Within 2 Weeks Disposition Disposition (needs filled in before D/C Order can be placed): Home, Self Care Charges/Coding Visit Charges OBSV E&M: 31573 Observation care discharge
[2020-09-18 13:38] VITALS: BP 154/85; PULSE 55; RESP 16; TEMP 36.6; O2SAT 99
--- NOTE | 2020-09-18 14:31 | PHA.DC.MR ---
Pharmacy Service has performed discharge medication reconciliation for this patient. The patient's discharge medication list was reviewed for discrepancies and discrepancies were resolved. Home Medications multivitamin with folic acid [Thera] 1 tab PO DAILY 01/29/13 omega-3 fatty acids-fish oil 1 ea PO DAILY 01/29/13 saw palmetto 160 mg PO DAILY 01/29/13 vitamin E (dl, acetate) 400 units PO DAILY 01/29/13 alfalfa 2,000 mg PO DAILY 09/05/16 zinc sulfate 220 mg PO DAILY 03/15/20
== END 2020-09-18 13:19 | disposition home or self-care (01) ==
LOC: ED 12:52 → PCU 14:02
PROVIDERS: Emergency Provider Emergency Medicine; PCP Family Medicine
DX: R07.89 Other chest pain (principal); R00.1 Bradycardia, unspecified; R11.0 Nausea; M79.602 Pain in left arm; J45.909 Unspecified asthma, uncomplicated; Z87.891 Personal history of nicotine dependence; Z79.899 Other long term (current) drug therapy; Z86.16 Personal history of COVID-19
CPT/HCPCS: 36415; 71045; 78452; 80048; 83735; 84484; 85025; 93005; 93017; 97802; 99218; 99284; A9500; A4216; G0378

== ENCOUNTER 2024-03-16 11:56 | Observation (INO) | payer MEDICARE, SELFPAY ==
[2024-03-16] VITALS (12 sets, daily range): BP systolic 145–171; BP diastolic 64–83; PULSE 55–67; RESP 12–19; TEMP 36.2–36.8; O2SAT 94–98; BMI 28.5; BMI 29.5; BMI 27.7
--- NOTE | 2024-03-16 12:06 | EKG12_ITS ---
Test Reason : Blood Pressure : */* mmHG Vent. Rate : 63 BPM Atrial Rate : 63 BPM P-R Int : 286 ms QRS Dur : 94 ms QT Int : 426 ms P-R-T Axes : 56 -18 18 degrees QTcB Int : 435 ms Sinus rhythm with 1st degree A-V block Minimal voltage criteria for LVH, may be normal variant ( R in aVL ) Nonspecific ST abnormality Abnormal ECG Confirmed by SUSANA CAI, VITA ([id number]), map editor ELIEL HAWKINS ([id number]) on 03/17/2024 1:25:39 PM Referred By: Confirmed By: VITA MEZA MD
--- NOTE | 2024-03-16 12:06 | CT_ITS ---
PROCEDURE: STROKE BRAIN/HEAD WITHOUT CONT STROKE BRAIN/HEAD WITHOUT CONT REASON FOR EXAM: Slurred speech. Confusion. TECHNIQUE: Multiple axial tomographic images were obtained without intravenous contrast administration. COMPARISON: None. # of known CTs in the past 12 months: 0 # of known Cardiac Nuclear Medicine Studies in the past 12 months: 0 FINDINGS: There is periventricular white matter hypodensity compatible with chronic small vessel ischemic disea se. Cerebral atrophy. Mild cerebellar atrophy. Opacification of the right maxillary sinus. CT/STROKE Brain/Head without Cont IMPRESSION: Cerebral atrophy. No acute abnormality is seen. One or more dose reduction techniques were used (e.g., Automated exposure contr ol, adjustment of the mA and/or kV according to patient size, use of iterative reconstruction technique). Reading Location: [place] [id number]
--- NOTE | 2024-03-16 12:06 | CT_ITS ---
PROCEDURE: STROKE CTA HEAD AND NECK W/CON REASON FOR EXAM: Slurred speech. Confusion. TECHNIQUE: CTA HEAD AND NECK WITH IV CONTRAST AND 3-D CONTRAST: COMPARISON: Comparison is made with prior CT scan of the head done earlier in the day. FINDINGS: AORTIC ARCH Scattered calcified plaques at the level of the aortic arch. There is a common trunk of the innominate and left common carotid arteries. The origins of the arch branch vessels are patent. EXTRACRANIAL CAROTIDS The common carotid, internal carotid and external carotid segments are widely patent throughout the n stefan. RIGHT ICA no plaque is seen. LEFT ICA no plaque is seen. SKULL BASE The petrous, cavernous and supraclinoid segments of the distal internal carotid arteries are patent w ith normal configuration. The ophthalmic arteries, posterior communicating artery and anterior choroidal artery origins are nor mal. INTRACRANIAL VASCULATURE Cerebral Arteries: The anterior, middle and posterior cerebral artery distributions are within normal limits. [place]: The A1 and P1 segments are patent. There is a patent anterior communicating artery with normal configuration. There are small patent posterior communicating arteries with normal configuration. Venous Drainage: Unremarkable. VERTEBROBASILAR SYSTEM The proximal subclavian arteries, both vertebral arteries and basilar artery are widely patent. The cerebellar arteries are within normal limits. NONVASCULAR There is no abnormal intracranial enhancement. The ventricles, cisterns, sulci and parenchymal attenuation are normal. Bone windows are unremarkable. Opacification of the right maxillary sinus. CT/STROKE CTA Head AND Neck W/Con IMPRESSION: NORMAL CTA HEAD AND NECK One or more dose reduction techniques were used (e.g., Automated exposure contr ol, adjustment of the mA and/or kV according to patient size, use of iterative reconstruction technique). Reading Location: [place] [id number]
[2024-03-16 12:25] LABS: Absolute Lymphocyte Count 1.33 X10^3/uL (0.83-4.51); Absolute Neutrophil Count 3.9 X10^3/uL (2.0-7.7); Basophil# 0.06 X10^3/uL; Eosinophil# 0.13 X10^3/uL; Eosinophils% 2.2 % (0-5); Hematocrit 41.7 % (40-54); Hemoglobin 14.1 g/dL (13.0-16.5); Lymphocyte # 1.33 X10^3/ul (0.83-4.51); Lymphocyte % 22.1 % (19-41); Mean Corp Hgb Conc 33.8 g/dL (32-36); Mean Corpuscular Hgb 29.1 pg (27.0-32.0); Mean Corpuscular Volume 86.2 fL (80-94); NRBC Flagged by Analyzer 0 % (0-5); Neutrophil # 3.87 X10^3/uL (2.7-7.7); Neutrophil % 64.4 % (47-70); Platelet Count 274 K/mm3 (150-450); RBC Distribution Width CV 12.8 % (11.6-14.6); RBC Distribution Width SD 39.9 fl (35.1-43.9); Red Blood Count 4.84 M/mm3 (4.6-6.2)
--- NOTE | 2024-03-16 12:30 | EDS_ITS ---
HPI History of Present Illness Chief Complaint: Neuro S/Sx Detail of Chief Complaint: Symptoms started at 0130. Patient refused ambulance transport last night Informant: patient and spouse/S.O. Onset/Context/Timing Onset: Today Context: Sudden Onset Timing: - (Patient still has mild dysarthria.) Onset: He also has a slight facial droop noted. Current Severity: Mild Maximum Severity: Moderate Worsened by: Nothing Relieved by: Not applicable Associated Symptoms Associated Symptoms: Negative for Headache, Nausea or Vomiting Narrative Narrative: Patient is an 88-year-old male. Past medical history is negative. He is only on vitamins. Onset was 0130 when he was talking to his . She called ambulance. He refused transport. Prior similar symptoms: No Recent Illness/Hospitalization: No PFSH PFSH Medical History (Updated 03/16/24 @ 13:[address] Pedro Churchill MD) Asthma Medical History no medical history no medical history Home Medications ?Medication ?Instructions ?Recorded ?Last Taken ?Type multivitamin with folic acid 400 1 tab PO DAILY supplement 01/29/13 09/17/20 History mcg tablet (Thera) omega-3 fatty acids-fish oil 300 1 ea PO DAILY supplement 01/29/13 09/17/20 History mg-1,000 mg capsule saw palmetto 500 mg capsule 160 mg PO DAILY prostate supplement 01/29/13 09/17/20 History vitamin E (dl, acetate) 180 mg 400 units PO DAILY vitamin 01/29/13 09/17/20 History (400 unit) capsule alfalfa 250 mg tablet 2,000 mg PO DAILY supplement 09/05/16 09/17/20 History zinc sulfate 50 mg zinc (220 mg) 220 mg PO DAILY supplement 03/15/20 09/17/20 History tablet Allergy/AdvReac Type Severity Reaction Status Date / Time ciprofloxacin (From Cipro) AdvReac Nausea/Vom/ Verified 03/16/24 12:06 Diarrhea sulfamethoxazole (From AdvReac caused Verified 03/16/24 12:06 Bactrim) liver to shut down trimethoprim (From Bactrim) AdvReac caused Verified 03/16/24 12:06 liver to shut down Family History Other Heart disease Social History (Updated 03/16/24 @ 12:[address] Pedro Churchill MD) household members: spouse Smoking Status: Former smoker ROS ROS ED Constitutional Constitutional ED: Denies chills or fever(s) Eyes Eyes: Denies blurry vision, change in vision or diplopia ENT ENT ED: Denies ear pain or rhinorrhea Cardiovascular Cardiovascular: Denies chest pain or palpitations Respiratory/Chest Respiratory/Chest: Denies cough, dyspnea or dyspnea on exertion Gastrointestinal Gastrointestinal: Denies abdominal pain, nausea or vomiting Integumentary Denies rash Neurologic Neurologic: Reports other Details: Trouble with speech. ; Denies headache(s) or paresthesias Hematologic/Lymphatic Hematologic/Lymphatic: Denies easy bleeding or easy bruising EXAM Physical Exam Const Vital Signs: 03/16/24 12:02 03/16/24 12:07 03/16/24 12:18 Temperature 98 F Temperature Source Temporal Pulse Rate 67 67 Respiratory Rate 18 18 Blood Pressure 146/64 H 146/64 H Blood Pressure Mean 91 91 Pulse Ox 98 98 Oxygen Delivery Method Room Air Room Air Room Air 03/16/24 12:20 03/16/24 12:38 03/16/24 13:00 Temperature 97.8 F Temperature Source Oral Pulse Rate 65 63 59 L Respiratory Rate 19 H 15 13 Blood Pressure 171/78 H 150/66 H 145/73 H Blood Pressure Mean 109 94 95 Pulse Ox 95 94 95 Oxygen Delivery Method Room Air Room Air Room Air 03/16/24 13:30 Temperature Temperature Source Pulse Rate 55 L Respiratory Rate 18 Blood Pressure 155/68 H Blood Pressure Mean 97 Pulse Ox 95 Oxygen Delivery Method Room Air Patient seen in triage as stroke alert. He is not a candidate for TNK. Positive well nourished and well developed General Appearance ED: well developed and NAD HEENT atraumatic Eyes PERRL and EOMs intact bilaterally Eyes Narrative: There is no nystagmus. There is no visual field cut. General Eye ED: Negative for pale conjunctiva or scleral icterus Neck no lymphadenopathy, supple and no JVD Chest Wall inspection of chest normal and palpation of chest normal Resp normal respiratory effort and clear to auscultation bilaterally Cardio no murmurs Rate: regular rate Rhythm: regular rhythm Heart Sounds: S1 normal and S2 normal GI normal to inspection, nondistended, normoactive bowel sounds, soft to palpation, non-tender, non-distended and no masses Extremity normal to inspection General Extremety ED: Negative for deformity or edema General Extremity: Negative for deformity or edema Neuro oriented x3 and No CN's II-XII intact bilaterally Neuro Narrative: Slight facial droop noted on the left. [place] Coma Scale: document GCS findings Spontaneous Obeys Commands Oriented 15 Sensorium / Orientation: alert Speech: Negative for speech normal Gait (Neuro): normal gait Motor Exam: strength 5/5 throughout Psych mental status grossly normal Skin Lesions: no lesions Rashes: no rashes NIHSS NIHSS Initial: 1a Level of Consciousness: 0 1b LOC Questions (Score 2 if aphasic/stupor): 0 1c LOC Commands (Only score 1st attempt): 0 2 Best Gaze (If aphasic, use reflexive mvmts.): 0 3 Visual: 0 4 Facial Palsy: 1 5 Motor Arm Right (UN = amputation/fusion): 0 5 Motor Arm Left: 0 6 Motor Leg Right: 0 6 Motor Leg Left: 0 7 Limb ataxia (Only + if out of proportion): 0 8 Sensory (Aphasia/stupor=0 or 1, coma=2): 0 9 Best Language: 0 10 Dysarthria (mute, coma=2, intubated=UN): 1 11 Extinction and Inattention (only scored if +): 0 Total Score: 2 MDM MDM MDM Narrative Medical decision making narrative: Stroke alert called in triage. Patient was seen in triage by me. Stroke order set was initiated. Differential diagnosis would include ischemic versus hemorrhagic stroke. His blood pressure is slightly elevated. He has no history of hypertension. Since he does not have a headache doubt this to be a migraine. Lab Data Attestation: I reviewed the patient's lab results. Lab results narrative: CBC is normal. Labs: Laboratory Results - last 24 hr 03/16/24 12:08 WBC 6.0 RBC 4.84 Hgb 14.1 Hct 41.7 MCV 86.2 MCH 29.1 MCHC 33.8 RDW Std Deviation 39.9 RDW Coeff of Jaspreet 12.8 Plt Count 274 MPV 9.0 Immature Gran % (Auto) 0.300 Neut % (Auto) 64.4 Lymph % (Auto) 22.1 [place] % (Auto) 10.0 Eos % (Auto) 2.2 Baso % (Auto) 1.0 Absolute Neuts (auto) 3.9 Absolute Lymphs (auto) 1.33 Nucleated RBC % 0 PT 13.4 INR 1.0 APTT 26.5 Sodium 139 Potassium 4.0 Chloride 107 Carbon Dioxide 24.0 Anion Gap 8 BUN 22 H Creatinine 1.02 Estim Creat Clear Calc 55.11 Est GFR (MDRD) Af Amer 89 Est GFR (MDRD) Non-Af 73 BUN/Creatinine Ratio 21.6 H Glucose 106 Calcium 10.5 H Troponin I High Sens 26 Radiography Chest X-Ray - ED: 1 View and Read by ED Physician (Cardiac silhouette size normal. Lung parenchyma reveals no acute process. No evidence of pneumothorax or effusion. There is chronic changes noted the thoracodorsal vertebral structures.) Diagnostic Testing: Clinical Impression(s) from Imaging Studies Brain CT 03/16/24 12:06 IMPRESSION: Cerebral atrophy. No acute abnormality is seen. One or more dose reduction techniques were used (e.g., Automated exposure control, adjustment of the mA and/or kV according to patient size, use of iterative reconstruction technique). Reading Location: [place] [id number] Head/Neck CTA 03/16/24 12:06 IMPRESSION: NORMAL CTA HEAD AND NECK One or more dose reduction techniques were used (e.g., Automated exposure control, adjustment of the mA and/or kV according to patient size, use of iterative reconstruction technique). Reading Location: [facility]- Chest X-Ray 03/16/24 12:55 IMPRESSION: The cardiomediastinal silhouette is remarkable for a somewhat tortuous aorta. No evidence of cardiomegaly. Lungs appear essentially clear of acute disease. No pleural effusion or pneumothorax is noted. No acute osseous change is evident. Reading Location: [address] EKG Initial EKG: Attestation: I personally reviewed and interpreted this EKG as follows: Interpretation: Sinus Rhythm (Rate is 63. There is evidence of first-degree AV block with a LA interval of 286 ms. QRS duration 94 ms. QT duration 426 ms. [place] is normal. Reading minimal voltage criteria for LVH versus normal variant in my opinion it is normal.) Management Discussion w/another healthcare provider: Hospitalist (Dr. Crocker was paged for PCU admission as observation status for stroke workup. Agrees with ops status PCU.), Care Manager Cna (Spoke with Dr. Webber's the [facility] neurologist. He had questions regarding the right vertebral artery. He states this might be artifact. If positive he would like recontacted. Patient apparently has had some intermittent dizziness since December when he had an injury. He states this could be the ) and Radiologist Stroke Documentation Questions Stroke Team Activated: Yes Reviewed Inclusion/Exclusion criteria: Yes IV Thrombolytic Administered: No (Outside of window and low NIH) No contraindications from thrombolytic administration: No Discharge Plan Dx/Rx/DC Orders Clinical Impression: Dysarthria, BPH (benign prostatic hyperplasia), Facial droop, Elevated blood- pressure reading without diagnosis of hypertension Disposition Disposition: Acute Care Hospital [facility]
--- NOTE | 2024-03-16 12:31 | ED.RN ---
Mili Morillo called [facility] again d/t it being approx 15 minutes since pt back in room from CT without neuro on for evaluation.
[2024-03-16 12:36] LABS: Prothrombin Time (Protime)PT. 13.4 SECONDS (11.7-14.9)
[2024-03-16 12:37] LABS: Partial Thromboplast Time 26.5 Seconds (24.1-36.2)
[2024-03-16 12:41] LABS: Anion Gap 8 (5-15); BUN 22 mg/dL (7-18); BUN/Creat Ratio 21.6 RATIO (10-20); Calcium,Total 10.5 mg/dL (8.5-10.1); Chloride 107 mmol/L (98-107); Creatinine, Serum 1.02 mg/dL (0.70-1.30); EST Glomerular Filtration Rate 73 mL/min (>60); Est Glom Filt Rate - Afr Amer 89 mL/min (>60); Estimated Creatinine Clearance 55.11 ml/min; Glucose 106 mg/dL (74-106); Sodium Level 139 mmol/L (136-145); Troponin-I HS 26 pg/mL (3.0-78.0)
--- NOTE | 2024-03-16 12:55 | RAD_ITS ---
PROCEDURE: CHEST 1 VIEW REASON FOR EXAM: Neuro deficit, acute. Stroke suspected. TECHNIQUE: AP portable upright chest. COMPARISON: None. RAD/Chest 1 View IMPRESSION: The cardiomediastinal silhouette is remarkable for a somewhat tortuous aorta. No evidence of cardiomegaly. Lungs appear essentially clear of acute disease. No pleural effusion or pneumothorax is noted. No acute osseous change is evident. Reading Location: [id number]
--- NOTE | 2024-03-16 13:48 | PCM.HP.STD ---
HPI - General General Date of Admission: 03/16/24 Date of Service: 03/16/24 Chief Complaint: Confusion and dysarthria HPI Narrative AMARIS BENITEZ, is a 88 M who presented to [facility] ED on 03/16/2024 with confusion and dysarthria. Presented as a stroke alert. Symptoms began at 1:30 AM so patient was outside the window for TNK. Patient lives at home with his . Was in his normal state of health until early this morning. He and his were going to leave around 2:30 AM to pick someone up at the airport. At 1:30 AM noticed that he was very confused and slurring his speech. She called the ambulance but he refused transport at that time. A few hours later she talked to the Utility Bag Assembler that the patient knows who convinced him to come in to the hospital. In the ED patient was hypertensive to the 170s systolic but otherwise hemodynamically stable on room air. Labs were unremarkable. CT brain and CTA head/neck were negative. Chest x-ray was unremarkable. Initial NIHSS score of 2 for facial palsy and dysarthria, but teleneurology noted that the symptoms had resolved by their evaluation of him. However, given concern for stroke, hospitalist was contacted for admission. I saw the patient at bedside in the ED, was present. Patient was sitting up comfortably in bed, conversing normally, in no acute distress. He was alert and oriented x 3 and answering questions appropriately for me. He denied any pain or discomfort. Denied any arm or leg weakness or numbness/tingling. Denied any facial weakness or numbness/tingling. Patient has typical BPH symptoms but denies any UTI symptoms recently. Denies any fevers or chills. Denies any recent upper respiratory symptoms or other illnesses. Patient does report occasional positional dizziness but states this has been fairly longstanding for him. Denies any falls at home. Has good functional status at baseline. No other acute concerns this time. [facility] Medical History (Updated 03/16/24 @ 13:[address] Pedro Churchill MD) Asthma Medical History no medical history Home Medications ?Medication ?Instructions ?Recorded ?Last Taken ?Type NK 03/16/24 Unknown History Allergy/AdvReac Type Severity Reaction Status Date / Time ciprofloxacin (From Cipro) AdvReac Nausea/Vom/ Verified 03/16/24 12:06 Diarrhea sulfamethoxazole (From AdvReac caused Verified 03/16/24 12:06 Bactrim) liver to shut down trimethoprim (From Bactrim) AdvReac caused Verified 03/16/24 12:06 liver to shut down Family History Other Heart disease Social History (Updated 03/16/24 @ 12:[address] Pedro Churchill MD) household members: spouse Smoking Status: Former smoker ROS Constitutional Constitutional: Denies chills, fatigue, fever(s) or weakness Eyes Eyes: Denies change in vision ENT HEENT: Denies abnormal hearing, nasal congestion or nasal discharge Cardiovascular Cardiovascular: Denies chest pain, edema, lightheadedness or palpitations Respiratory/Chest Respiratory/Chest: Denies cough or shortness of breath at rest Gastrointestinal Gastrointestinal: Denies abdominal pain Genitourinary Genitourinary: Reports urinary frequency and urinary hesitancy; Denies dysuria Musculoskeletal Musculoskeletal: Denies arthralgias or myalgias Neurologic Neurologic: Denies abnormal gait, confusion, dizziness, headache(s), numbness, paresthesias or tingling Vital Signs Vital Signs Vital Signs: 03/16/24 12:02 03/16/24 12:07 03/16/24 12:18 Temperature 98 F Temperature Source Temporal Pulse Rate 67 67 Respiratory Rate 18 18 Blood Pressure 146/64 H 146/64 H Blood Pressure Mean 91 91 Pulse Ox 98 98 Oxygen Delivery Method Room Air Room Air Room Air 03/16/24 12:20 03/16/24 12:38 03/16/24 13:00 Temperature 97.8 F Temperature Source Oral Pulse Rate 65 63 59 L Respiratory Rate 19 H 15 13 Blood Pressure 171/78 H 150/66 H 145/73 H Blood Pressure Mean 109 94 95 Pulse Ox 95 94 95 Oxygen Delivery Method Room Air Room Air Room Air 03/16/24 13:30 Temperature Temperature Source Pulse Rate 55 L Respiratory Rate 18 Blood Pressure 155/68 H Blood Pressure Mean 97 Pulse Ox 95 Oxygen Delivery Method Room Air Weight Weight: 88.3 kg Body Mass Index (BMI) 29.5 Physical Exam Const alert, oriented x3, no apparent distress and average body habitus Constitutional Narrative: Elderly male, overweight, mentally sharp for his age, sitting up comfortably in bed, conversing normally, in no acute distress. General Appearance: cooperative and comfortable HEENT normocephalic, head/scalp atraumatic, hearing grossly normal bilaterally, nasal mucous membranes and turbinates normal and moist oral mucous membranes Eyes PERRL, EOMs intact bilaterally and conjunctivae normal Neck full ROM Chest inspection of chest normal Resp normal respiratory effort, normal air movement, no use of accessory muscles and clear to auscultation bilaterally Cardio regular rate, regular rhythm, no murmurs and peripheral pulses 2+ throughout GI normal to inspection, nondistended, normoactive bowel sounds, soft to palpation, non-tender and non-distended Back/Spine normal ROM Extremity normal to inspection, full ROM and no pedal edema Skin no rashes or lesions noted Neuro oriented x3, moves all extremities and no focal motor deficits Speech: speech normal Motor Exam: strength 5/5 throughout Psych mental status grossly normal Results Lab / Micro Data 03/16/24 12:08 03/16/24 12:08 Labs: Laboratory Results - last 24 hr 03/16/24 12:08: WBC 6.0, RBC 4.84, Hgb 14.1, Hct 41.7, MCV 86.2, MCH 29.1, MCHC 33.8, RDW Std Deviation 39.9, RDW Coeff of Jaspreet 12.8, Plt Count 274, MPV 9.0, Immature Gran % (Auto) 0.300, Neut % (Auto) 64.4, Lymph % (Auto) 22.1, Hudson % (Auto) 10.0, Eos % (Auto) 2.2, Baso % (Auto) 1.0, Absolute Neuts (auto) 3.9, Absolute Lymphs (auto) 1.33, Nucleated RBC % 0, PT 13.4, INR 1.0, APTT 26.5, Sodium 139, Potassium 4.0, Chloride 107, Carbon Dioxide 24.0, Anion Gap 8, BUN 22 H, Creatinine 1.02, Estim Creat Clear Calc 55.11, Est GFR (MDRD) Af Amer 89, Est GFR (MDRD) Non-Af 73, BUN/Creatinine Ratio 21.6 H, Glucose 106, Calcium 10.5 H, Troponin I High Sens 26 Imaging Radiology Impression Brain CT 03/16/24 12:06 IMPRESSION: Cerebral atrophy. No acute abnormality is seen. One or more dose reduction techniques were used (e.g., Automated exposure control, adjustment of the mA and/or kV according to patient size, use of iterative reconstruction technique). Reading Location: [facility] Head/Neck CTA 03/16/24 12:06 IMPRESSION: NORMAL CTA HEAD AND NECK One or more dose reduction techniques were used (e.g., Automated exposure control, adjustment of the mA and/or kV according to patient size, use of iterative reconstruction technique). Reading Location: [facility] Chest X-Ray 03/16/24 12:55 IMPRESSION: The cardiomediastinal silhouette is remarkable for a somewhat tortuous aorta. No evidence of cardiomegaly. Lungs appear essentially clear of acute disease. No pleural effusion or pneumothorax is noted. No acute osseous change is evident. Reading Location: [address] Assessment & Plan Assessment/Plan (1) Dysarthria: (2) Elevated blood-pressure reading without diagnosis of hypertension: PLAN: Plan Patient is an 88-year-old male who presented to [facility] ED on 03/16/2024 with strokelike symptoms. 1. Strokelike symptoms, CVA rule out ? Admit under observation status to PCU. Neurology consulted. Presented with confusion and dysarthria. Symptoms resolved in the ED and was out of the window for TNK. CT brain and CTA head/neck normal. Orders placed per stroke protocol order set. MRI brain ordered. Echo with bubble study ordered. Lipid panel, A1c and TSH ordered. PT/OT/case management consulted. Will start aspirin and statin for patient. 2. Elevated BP readings ? Blood pressure in the 150s to 170s systolic in the ED. Not on any home antihypertensives but notably he is only on vitamins and does not like taking medications. Monitor, allowing permissive hypertension for now with stroke workup. 3. Mild hypercalcemia ? Calcium 10.5 on admit. No calcium values available since 2020, was normal at that time. Vitamin D and PTH ordered for further evaluation. DVT prophylaxis: SCDs CODE STATUS: Full code, verified Expected disposition: Home, 1 to 2 days Total clinical time spent by myself addressing the patient's medical issues, reviewing all the data, and collaborating with patient's care team: 55 minutes. Charges/Coding Visit Charges Inpatient E&M: 17773 Init Hosp L2
--- NOTE | 2024-03-16 13:52 | MRI_ITS ---
PROCEDURE: BRAIN WITHOUT CONTRAST REASON FOR EXAM: Possible CVA. TECHNIQUE: Multiplanar, multisequence MRI of the brain without contrast. COMPARISON: None available. FINDINGS: Diffusion-weighted images demonstrate no area of restricted diffusion. [id number] generalized cerebral atrophy is seen, with symmetric ventricular enlargement consist ent with the degree of atrophy. No intracranial mass or mass effect is seen. No extra-axial fluid collection is seen. Mild bilateral cerebral white matter changes are seen, most consistent with chronic ischemic changes of small-vessel disease. No orbital pathology is noted. Internal auditory canals appear symmetric and within the normal range. The right maxillary sinus is mostly opacified, with air-fluid level also noted. Mild ethmoid air cell mucosal disease is noted. The remaining paranasal sinuses appear clear, as do the mastoid air cells. MRI/Brain without Contrast IMPRESSION: Acute and chronic paranasal sinusitis. [id number] generalized cerebral atrophy. No acute intracranial process i s noted. Reading Location: [id number]
--- NOTE | 2024-03-16 13:52 | ECHOD_ITS ---
Reason For Study: TIA/CVA Procedure This was a 2D Doppler, Color Flow transthoracic echocardiogram. Exam performed portable in patient room. Left Ventricle Normal LV size. The estimated ejection fraction is 70 %. No evidence for diastolic dysfunction. No regional wall motion abnormalities noted. Right Ventricle Normal RV size. Normal systolic function. Atria The left and right atria are normal. No doppler evidence for ASD. Mitral Valve There is no mitral valve stenosis. No mitral valve insufficiency. Tricuspid Valve There is no tricuspid stenosis. Trivial tricuspid valve insufficiency. Pulmonary artery systolic pressure is 25 mmHg. Aortic Valve Trisinus/trileaflet aortic valve. Mild diffuse aortic valve thickening. Mild aortic stenosis. Trivial aortic valve insufficiency. Pulmonic Valve There is no pulmonic valvular stenosis. No pulmonic valve insufficiency. Great Vessels Normal aortic root. Pericardium/Pleural No pericardial effusion. MMode/2D Measurements & Calculations LVIDd: 4.4 cm IVSd: 1.3 cm LVOT diam: 2.2 cm LVIDs: 2.3 cm LVPWd: 1.3 cm LVOT area: 3.8 cm2 RVDd: 3.7 cm FS: 47.7 % _ asc Aorta Diam: 3.5 cm LAV(MOD-bp): 63.5 ml LVAd ap4: 27.5 cm2 LAV(MOD-bp) Indexed: 31.5 ml/m2 LVLd ap4: 8.6 cm LAV(MOD-sp2): 82.2 ml EDV(MOD- sp4): 72.6 ml LAV(MOD-sp4): 48.7 ml EDV(sp4- el): 74.5 ml LVAs ap4: 15.0 cm2 LVLs ap4: 6.7 cm ESV(MOD- sp4): 29.3 ml ESV(sp4- el): 28.6 ml EF(MOD- sp4): 59.6 % EF(sp4- el): 61.7 % _ LVAd ap2: 27.0 cm2 SV(MOD-sp4): 43.3 ml SV(MOD- sp2): 44.6 ml LVLd ap2: 8.2 cm SI(MOD-sp4): 21.4 ml/m2 SI(MOD- sp2): 22.1 ml/m2 EDV(MOD-sp2): 73.7 ml EDV(sp2-el): 75.5 ml LVAs ap2: 15.0 cm2 LVLs ap2: 7.1 cm ESV(MOD-sp2): 29.1 ml ESV(sp2-el): 26.8 ml EF(MOD-sp2): 60.5 % _ SV(sp4-el): 46.0 ml Ao sinus diam: 4.[address] Junction: 2.9 cm _ LA dimension(2D): 3.5 cm LA A4 area: 18.3 cm2 RA A4 area: 16.0 cm2 _ TAPSE: 1.8 cm Time Measurements MV dec time: 0.33 sec Doppler Measurements & Calculations MV E max matthew: 63.9 cm/sec Lat Peak E' Matthew: 6.9 cm/sec Med Peak E' Matthew: 5.9 cm/sec MV A max matthew: 106.6 cm/sec E/E' lat: 9.3 E/E' med: 10.8 MV E/A: 0.60 _ MV dec slope: 192.7 cm/sec2 Ao V2 max: 194.4 cm/sec LV V1 max: 98.4 cm/sec Ao max P.1 mmHg LV V1 max P.9 mmHg Ao V2 mean: 130.8 cm/sec LV V1 mean P.1 mmHg Ao mean P.7 mmHg LV V1 mean: 69.5 cm/sec Ao V2 VTI: 42.9 cm LV V1 VTI: 22.6 cm AV (velocity ratio): 0.53 CODIE(I,D): 2.0 cm2 CODIE(V,D): 1.9 cm2 _ SV(LVOT): 85.0 ml PA V2 max: 80.0 cm/sec TR max matthew: 237.7 cm/sec TR max P.6 mmHg ECHO/Echo Complete Interpretation Summary The estimated ejection fraction is 70 %. No evidence for diastolic dysfunction. Mild aortic stenosis. Trivial aortic valve insufficiency. Ordering Physician: Rio Crocker Performed By: Jenny Monson RDCS
[2024-03-16 14:29] LABS: AST(SGOT) 20 U/L (15-37); Alanine Aminotransfer ALT/SGPT 22 U/L (16-61); Albumin, Serum 3.6 g/dL (3.2-5.0); Alkaline Phosphatase 81 U/L (45-117); Bilirubin, Direct 0.22 mg/dL (0.00-0.30); Globulin 3.5 g/dL (2.2-4.2); Protein, Total 7.1 g/dL (6.4-8.2)
[2024-03-16 14:30] LABS: Hemoglobin A1c 5.6 % (3.8-5.6)
--- NOTE | 2024-03-16 15:32 | CHAPLAIN ---
Type of Pastoral Visit ___ Initial Visit ___ Follow-up Visit ___ On-call Visit ___ General Patient Visit ___ Spiritual Assessment ___ Family Conference ___ Bereavement _x__ Rapid Response ___ Code Blue ___ Other (describe below) Pastoral Care Referral From ___ Patient ___ Family ___ Nurse ___ Physician ___ Private Watchman ___ Cnc Operator Machinist _x__ Other (describe below) Sacrament/Intervention _x__ Active listening ___ Anointing ___ Yazidi ___ Bereavement ___ Communion ___ Shayna exploration ___ _x__ Life review ___ Prayer ___ Reconciliation ___ Sacrament of Sick _x__ Supportive presence ___ Wedding ___ Other (describe below) Pastoral Comments responded to stroke alert in the ED; found spouse in the room as patient was having a CT scan; SW is also present; spouse is remembered from other family members being in the hospital and she remembers this marketing rep; updated information; offer of support; gave spouse the water she requested; pt comes back to the room and is alert and talking; wished the patient well and offered ongoing support as needed
--- NOTE | 2024-03-16 17:55 | CM.ED ---
Social Work Reason for visit: Stroke Alert SW responded to stroke alert in triage. Patient was brought in by . shown to room while patient went for testing. stated that patient had reported confusion and headache, she called the squad but when they got to the home, he was stating his symptoms had resolved and he refused squad transport. stated she was able to convince patient to come to ER and drove him. Patient was alert when returned to room. Emotional support provided. No further needs identified. Munira Humphreys, ASSEMBLER FITTER, GROUND SCHOOL INSTRUCTOR
[2024-03-16 20:51] LABS: PTHIN 69.5 pg/mL (18.4-80.1)
[2024-03-17 01:19] VITALS: BP 149/67; PULSE 70; RESP 16; TEMP 36.5; O2SAT 97
[2024-03-17 01:54] LABS: Color, Urine Yellow (Yellow); Glucose, Dipstick Normal (Normal); Ketone-Dipstick Negative (Negative); Leukocyte Esterase-Dipstick 25 /ul (Negative); Nitrite-Dipstick Negative (Negative); Occult Blood-Urine Negative /ul (Negative); Protein-Dipstick Negative (Negative); Urine Bilirubin Dipstick Negative (Negative); Urine Clarity Clear (Clear); Urine Urobilinogen Normal (Normal)
[2024-03-17 06:33] VITALS: BP 135/68; PULSE 55; RESP 14; TEMP 36.6; O2SAT 96
[2024-03-17 07:15] VITALS: O2SAT 95
[2024-03-17 07:27] LABS: Hematocrit 39.1 % (40-54); Hemoglobin 13.2 g/dL (13.0-16.5); Mean Corp Hgb Conc 33.8 g/dL (32-36); Mean Corpuscular Hgb 28.9 pg (27.0-32.0); Mean Corpuscular Volume 85.6 fL (80-94); Mean Platelet Vol. 9.6 fl (6.2-12.0); Platelet Count 259 K/mm3 (150-450); RBC Distribution Width CV 13.1 % (11.6-14.6); Red Blood Count 4.57 M/mm3 (4.6-6.2); White Blood Count 6.5 K/mm3 (4.4-11.0)
[2024-03-17 08:02] LABS: Anion Gap 7 (5-15); BUN 24 mg/dL (7-18); BUN/Creat Ratio 21.8 RATIO (10-20); Calcium,Total 9.8 mg/dL (8.5-10.1); Chloride 108 mmol/L (98-107); Cholesterol 163 mg/dL (200); EST Glomerular Filtration Rate 67 mL/min (>60); Est Glom Filt Rate - Afr Amer 81 mL/min (>60); Estimated Creatinine Clearance 49.63 ml/min; Glucose 96 mg/dL (74-106); High Density Lipoprotein 49 mg/dL; Sodium Level 138 mmol/L (136-145); Triglycerides 88 mg/dL; Very Low Density Lipoprotein 18 mg/dL (5-40)
[2024-03-17] MEDS: Aspirin 81 MG TAB.CHEW PO (09:43)
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
[2024-03-17 13:23] LABS: Vitamin D,25 Hydroxy 41.6 ng/mL
[2024-03-17 14:42] VITALS: BP 121/64; BP 124/59; BP 134/64; PULSE 61; PULSE 62; PULSE 66
[2024-03-17 14:51] VITALS: RESP 14; O2SAT 94
--- NOTE | 2024-03-17 15:40 | CHAPLAIN ---
Type of Pastoral Visit ___ Initial Visit _x__ Follow-up Visit ___ On-call Visit ___ General Patient Visit ___ Spiritual Assessment ___ Family Conference ___ Bereavement ___ Rapid Response ___ Code Blue ___ Other (describe below) Pastoral Care Referral From _x__ Patient _x__ Family ___ Nurse ___ Physician ___ Delivery Analyst ___ Robotics Testing Technician ___ Other (describe below) Sacrament/Intervention _x__ Active listening ___ Anointing ___ Congregational ___ Bereavement ___ Communion _x__ Shayna exploration ___ _x__ Life review _x__ Prayer ___ Reconciliation ___ Sacrament of Sick ___ Supportive presence ___ Wedding ___ Other (describe below) Pastoral Comments patient and spouse are in the room; pt was seen briefly yesterday for the stroke alert; both are very welcoming and enter into easy dialogue; pt has had good results so far and is very optimistic about his health; both are spiritually minded people and talk about their shayna and how God is working; presence and prayer given
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
--- NOTE | 2024-03-17 16:45 | CASEMGMT ---
Patient has order for discharge. RN CM in to discuss needs at discharge. Patient independent in room. Patient denies needs or help at discharge. RN CM explained STANLEY form to patient, patient voiced understanding. Patient signed STANLEY form and filed in chart. Patient provided copy. Patient had no further questions or concerns.
[2024-03-17 17:21] VITALS: BMI 27.7
== END 2024-03-17 17:39 | disposition home or self-care (01) ==
LOC: ED 13:22 → PCU 13:55
PROVIDERS: Admitting Provider Hospitalist; Emergency Provider Emergency Medicine; PCP Family Medicine; Visit Provider Internal Medicine
DX: F07.81 Postconcussional syndrome (principal); R47.1 Dysarthria and anarthria; Z87.891 Personal history of nicotine dependence; R29.810 Facial weakness; R03.0 Elevated blood-pressure reading, without diagnosis of hypertension; N40.0 Benign prostatic hyperplasia without lower urinary tract symptoms; R41.0 Disorientation, unspecified; E83.52 Hypercalcemia; E78.5 Hyperlipidemia, unspecified; I35.0 Nonrheumatic aortic (valve) stenosis
CPT/HCPCS: 99285; 36415; 70450; 70496; 70498; 70551; 71045; 80048; 80061; 80076; 81002; 82306; 83036; 83970; 84443; 84484; 85025; 85027; 85610; 85730; 93005; 93306; 97802; Q9967; A4216

== ENCOUNTER 2024-03-17 18:40 | Inpatient (IN) | payer MEDICARE, SELFPAY ==
[2024-03-17] VITALS (10 sets, daily range): BP systolic 146–167; BP diastolic 69–85; PULSE 56–71; RESP 16–21; TEMP 36.6–36.8; O2SAT 93–98; BMI 27.3; BMI 27.1; BMI 28.0
--- NOTE | 2024-03-17 18:47 | CT_ITS ---
PROCEDURE: STROKE CTA HEAD AND NECK W/CON REASON FOR EXAM: Stroke. TECHNIQUE: CTA imaging of the head and neck from the aortic arch to the skull vertex with intravenous contrast. 3D reconstructions. COMPARISON: None. FINDINGS: Aortic Arch: Normal size and branching pattern. No significant atherosclerotic plaque. Brachiocephalic and Subclavians: Unremarkable RIGHT Carotid: Right CCA: Unremarkable. Right ICA: Unremarkable. Maximum stenosis (NASCET): 0 % Right ECA: Unremarkable. LEFT Carotid: Left CCA: Unremarkable. Left ICA: Unremarkable. Maximum stenosis (NASCET): 0 % Left ECA: Unremarkable. Vertebrals: Codominant. Arise from the subclavians. Both vertebrals form the basilar. RIGHT Vertebral: Atherosclerosis at the origin with approximately 50% stenosis. LEFT Vertebral: Atherosclerosis at the origin with less than 50% stenosis. No intracranial aneurysms or large vascular malformations are identified. Anterior cerebral arteries: Unremarkable. Middle cerebral arteries: Unremarkable. Basilar artery: Unremarkable. Posterior cerebral arteries: origin of the left posterior cerebral artery. Other major branches of the posterior circulation: Unremarkable. Major venous structures: Unremarkable. Other findings: No lymphadenopathy. Lung apices are clear. Bones are unremarkable. CT/STROKE CTA Head AND Neck W/Con IMPRESSION: No acute arterial abnormality. Details above. One or more dose reduction techniques were used (e.g., Automated exposure contr ol, adjustment of the mA and/or kV according to patient size, use of iterative reconstruction technique). Reading Location: [id number]
--- NOTE | 2024-03-17 18:47 | CT_ITS ---
EXAM: STROKE BRAIN/HEAD WITHOUT CONT CLINICAL HISTORY: Stroke. COMPARISON: 03/16/2024 MRI. TECHNIQUE: CT of the head without contrast was performed. FINDINGS: No intracranial hemorrhage, mass effect, or midline shift. Willingham-white matter differentiation is maintained without CT findings of acute infarct. No cerebral edema or sulcal effacement. Moderate global parenchymal atrophy. Mild chronic microvascular ischemia. The orbits appear within normal limits. Near complete opacification of the right maxillary sinus. Mild left maxillary sinus mucosal thickening. CT/STROKE Brain/Head without Cont IMPRESSION: No acute abnormal intracranial finding. Parenchymal atrophy and chronic microvascular ischemia. Paranasal sinus disease as above. Reading Location: [id number]
--- NOTE | 2024-03-17 18:47 | EKG12_ITS ---
Test Reason : DYSRHYTHMIA Blood Pressure : */* mmHG Vent. Rate : 65 BPM Atrial Rate : 65 BPM P-R Int : 290 ms QRS Dur : 102 ms QT Int : 432 ms P-R-T Axes : 69 -16 32 degrees QTcB Int : 449 ms Sinus rhythm with 1st degree A-V block Incomplete right bundle branch block Minimal voltage criteria for LVH, may be normal variant ( R in aVL ) Borderline ECG Confirmed by GIULIANA CAI, MIRI ([id number]), editor farm journal LATANYA WOODS ([id number]) on 03/21/2024 6:05:38 AM Referred By: Confirmed By: MIRI GIORDANO MD
--- NOTE | 2024-03-17 18:49 | ED.VIS.STROK ---
HPI History of Present Illness Chief Complaint: Stroke Alert Informant: patient, family and other (hospitalist) Narrative Narrative: 88-year-old male brought into the hospital from the parking lot about 10 minutes after suddenly losing vision in his left eye. No pain, no headache, maybe a little dizziness but no problems walking. He was walking in the parking lot because he was just discharged from the hospital after being admitted for a stroke workup that involved confusion and dizziness. He did not have the vision loss then. He denies any other new symptoms right now. Dr. Snyder was caring for the patient prior to his discharge tonight, patient was asymptomatic with a blood pressure in the 130s just prior to discharge. [facility] Medical History Asthma Home Medications ?Medication ?Instructions ?Recorded ?Last Taken ?Type aspirin 81 mg chewable tablet 81 mg PO BREAKFAST #0 tabs 03/17/24 Unknown Rx atorvastatin 40 mg tablet 40 mg PO QHS #30 tabs 03/17/24 Unknown Rx shaklee PO DAILY 03/17/24 Unknown History Allergy/AdvReac Type Severity Reaction Status Date / Time ciprofloxacin (From Cipro) AdvReac Nausea/Vom/ Verified 03/16/24 12:06 Diarrhea sulfamethoxazole (From AdvReac caused Verified 03/16/24 12:06 Bactrim) liver to shut down trimethoprim (From Bactrim) AdvReac caused Verified 03/16/24 12:06 liver to shut down Family History Other Heart disease Social History household members: spouse Smoking Status: Former smoker ROS ROS ED Constitutional Constitutional ED: Denies chills or fever(s) Eyes Eyes: Reports change in vision; Denies diplopia ENT ENT ED: Denies rhinorrhea or sore throat Cardiovascular Cardiovascular: Denies chest pain or palpitations Respiratory/Chest Respiratory/Chest: Denies cough or dyspnea Gastrointestinal Gastrointestinal: Denies abdominal pain, diarrhea, nausea or vomiting Genitourinary Genitourinary ED: Denies dysuria or hematuria Musculoskeletal Musculoskeletal: Denies back pain or neck pain Integumentary Denies abscess or rash Neurologic Neurologic: Reports dizziness; Denies abnormal gait, abnormal hearing, abnormal speech, focal weakness, headache(s), paresthesias or weakness Psychiatric Psychiatric: Denies anxiety or suicidal thoughts EXAM Physical Exam Const Vital Signs: 03/17/24 18:42 03/17/24 19:00 03/17/24 19:03 Temperature 98.1 F Temperature Source Temporal Pulse Rate 71 69 Respiratory Rate 18 21 H Blood Pressure 167/84 H 161/75 H Blood Pressure Mean 111 103 Pulse Ox 94 97 Oxygen Delivery Method Room Air Room Air Room Air 03/17/24 19:30 03/17/24 19:31 03/17/24 19:32 Temperature 98.2 F Temperature Source Pulse Rate 62 64 63 Respiratory Rate 20 H 21 H 17 Blood Pressure 147/69 H 147/69 H 147/69 H Blood Pressure Mean 95 95 95 Pulse Ox 93 93 93 Oxygen Delivery Method Room Air Room Air Positive well nourished and well developed General Appearance ED: well developed and NAD HEENT Reports moist mucous membranes normocephalic and atraumatic Eyes PERRL and EOMs intact bilaterally Neck full ROM and supple Resp normal respiratory effort and clear to auscultation bilaterally Cardio regular rate, regular rhythm and no murmurs GI non-tender and non-distended Auscultation: normoactive bowel sounds Palpation: soft Back/Spine no CVA tenderness General Back: other FROM Extremity normal to inspection General Extremety ED: Negative for edema, pulses abnormal or tenderness General Extremity: Negative for edema or pulses abnormal Neuro oriented x3, CN's II-XII intact bilaterally and no sensory deficits noted Neuro Narrative: Visual grande: Patient does have vision in both eyes but he has a complete left visual field hemianopsia. No pathologic nystagmus including vertical, rotatory. Negative skew test. Normal nihksn-xl-cngd jwis-gi-apoy bilaterally. No dysarthria or aphasia. Sensorium / Orientation: awake and alert Motor Exam: strength 5/5 throughout Psych mental status grossly normal Skin no rashes or lesions noted and no wounds NIHSS NIHSS Initial: 1a Level of Consciousness: 0 1b LOC Questions (Score 2 if aphasic/stupor): 0 1c LOC Commands (Only score 1st attempt): 0 2 Best Gaze (If aphasic, use reflexive mvmts.): 0 3 Visual: 2 4 Facial Palsy: 0 5 Motor Arm Right (UN = amputation/fusion): 0 5 Motor Arm Left: 0 6 Motor Leg Right: 0 6 Motor Leg Left: 0 7 Limb ataxia (Only + if out of proportion): 0 8 Sensory (Aphasia/stupor=0 or 1, coma=2): 0 9 Best Language: 0 10 Dysarthria (mute, coma=2, intubated=UN): 0 11 Extinction and Inattention (only scored if +): 0 Total Score: 2 MDM MDM MDM Narrative Medical decision making narrative: Stroke alert was called patient was taken directly to CT for CT of the head which I am interpretation shows no hemorrhage, and CTA of the head and neck which on my interpretation shows no LVO or obvious paucity of blood flow. I discussed with Dr. Delvalle with stroke neurology [facility]. We together reviewed some of the patient's recent inpatient documents. The radiologist read the patient's MRI as negative for any acute. However, on the initial stroke consultation from stroke neurology for his admission, they noted that his MRI showed what appeared to be an acute left thalamic infarct, however it did not correlate with his symptoms and so they thought it was incidental. However, given that this was interpreted by neurology is acute, it is a contraindication for lytics and he recommends not giving thrombolytics. He does recommend loading the patient with aspirin 324 and clopidogrel 300 mg now. This will be done after he passes dysphagia screen, assuming he does. His symptoms are unchanged. Now it is NIHSS is unchanged. His blood pressures come down a little bit, 147/69. Patient is clinically stable. Stroke neurology also recommends admitting him for repeat MRI, as well as placing an event monitor when the patient is eventually discharged. Lab Data Attestation: I reviewed the patient's lab results. Labs: Laboratory Results - last 24 hr 03/17/24 18:45 WBC 6.0 RBC 4.95 Hgb 14.3 Hct 42.9 MCV 86.7 MCH 28.9 MCHC 33.3 RDW Std Deviation 41.0 RDW Coeff of Jaspreet 13.1 Plt Count 257 MPV 9.1 Immature Gran % (Auto) 0.300 Neut % (Auto) 60.7 Lymph % (Auto) 19.0 Barren % (Auto) 14.8 H Eos % (Auto) 4.0 Baso % (Auto) 1.2 H Absolute Neuts (auto) 3.6 Absolute Lymphs (auto) 1.13 Nucleated RBC % 0 PT 12.3 INR 0.9 APTT 26.7 Sodium 137 Potassium 3.7 Chloride 106 Carbon Dioxide 23.0 Anion Gap 7 BUN 24 H Creatinine 1.17 Estim Creat Clear Calc 43.03 Est GFR (MDRD) Af Amer 76 Est GFR (MDRD) Non-Af 63 BUN/Creatinine Ratio 20.5 H Glucose 126 H Calcium 10.3 H Troponin I High Sens 26 Radiography Diagnostic Testing: Clinical Impression(s) from Imaging Studies Brain CT 03/17/24 18:47 IMPRESSION: No acute abnormal intracranial finding. Parenchymal atrophy and chronic microvascular ischemia. Paranasal sinus disease as above. Reading Location: [facility] Head/Neck CTA 03/17/24 18:47 IMPRESSION: No acute arterial abnormality. Details above. One or more dose reduction techniques were used (e.g., Automated exposure control, adjustment of the mA and/or kV according to patient size, use of iterative reconstruction technique). Reading Location: [facility] Rhythm Strip Rhythm Strip: Sinus Rhythm Rate: 65 Ectopy: None EKG Initial EKG: Attestation: I personally reviewed and interpreted this EKG as follows: Interpretation: Sinus Rhythm, No Acute Injury Pattern, AV Block (1st deg) and Non-Specific ST Changes Management Discussion w/another healthcare provider: Hospitalist, Signal Circuit Designer (stroke neuro) and Radiologist Stroke Documentation Questions Stroke Team Activated: Yes Was Patient considered for Endovascular Intervention?: No-CTA negative, determined not to be an endovascular candidate IV Thrombolytic Administered: No Critical Care Time Critical Care Time: Yes Critical care time (excluding procedures): 30-74 minutes (40 min), Including time spent:, Discussing w/Patient &/or Family/Financial Coordinator, Discussing w/Consultants, Arranging Admission or Transfer and Performing Direct Patient Care at Bedside Discharge Plan Dx/Rx/DC Orders Clinical Impression: Left homonymous hemianopsia Disposition Disposition: [facility] Care [facility]
[2024-03-17 19:00] LABS: Absolute Lymphocyte Count 1.13 X10^3/uL (0.83-4.51); Absolute Neutrophil Count 3.6 X10^3/uL (2.0-7.7); Basophil# 0.07 X10^3/uL; Basophil% 1.2 % (0-1); Eosinophil# 0.24 X10^3/uL; Hematocrit 42.9 % (40-54); Hemoglobin 14.3 g/dL (13.0-16.5); Lymphocyte # 1.13 X10^3/ul (0.83-4.51); Mean Corp Hgb Conc 33.3 g/dL (32-36); Mean Corpuscular Hgb 28.9 pg (27.0-32.0); Mean Corpuscular Volume 86.7 fL (80-94); Mean Platelet Vol. 9.1 fl (6.2-12.0); Monocyte# 0.88 X10^3/uL; Monocyte% 14.8 % (0-10); NRBC Flagged by Analyzer 0 % (0-5); Neutrophil # 3.62 X10^3/uL (2.7-7.7); Neutrophil % 60.7 % (47-70); Platelet Count 257 K/mm3 (150-450); RBC Distribution Width CV 13.1 % (11.6-14.6); Red Blood Count 4.95 M/mm3 (4.6-6.2)
[2024-03-17 19:13] LABS: International Normalized Ratio 0.9; Prothrombin Time (Protime)PT. 12.3 SECONDS (11.7-14.9)
[2024-03-17 19:14] LABS: Partial Thromboplast Time 26.7 Seconds (24.1-36.2)
[2024-03-17 19:16] LABS: Anion Gap 7 (5-15); BUN 24 mg/dL (7-18); BUN/Creat Ratio 20.5 RATIO (10-20); Calcium,Total 10.3 mg/dL (8.5-10.1); Chloride 106 mmol/L (98-107); Creatinine, Serum 1.17 mg/dL (0.70-1.30); EST Glomerular Filtration Rate 63 mL/min (>60); Est Glom Filt Rate - Afr Amer 76 mL/min (>60); Estimated Creatinine Clearance 43.03 ml/min; Glucose 126 mg/dL (74-106); Potassium 3.7 mmol/L (3.5-5.1); Sodium Level 137 mmol/L (136-145); Troponin-I HS 26 pg/mL (3.0-78.0)
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
[2024-03-17] MEDS: Clopidogrel Bisulfate 300 MG Tablet PO (19:51)
[2024-03-17] MEDS: Aspirin 81 MG TAB.CHEW 324 MG PO (19:51)
--- NOTE | 2024-03-17 20:34 | CM.ED ---
Social Work Reason for visit: Stroke Alert SW visited with who was here yesterday with also for a stroke alert. stated that patient had just discharged from the hospital and were heading home when he stated he was unable to see out of his left eye. turned around and brought patient back to the ED. Emotional support provided. No further needs identified at this time. Munira Humphreys, DAIRY EQUIPMENT REPAIRER, MACHINE STONE POLISHER
--- NOTE | 2024-03-17 21:36 | CDU_ITS ---
Reason For Study: Evaluate for stenosis, Vision loss Rt. Velocities/BP Lt. Velocities/BP Prox CCA 58.9/11.6 cm/sec. Prox CCA 84.4/13.5 cm/sec. Mid CCA 53.2/8.8 cm/sec. Mid CCA 78.7/11.6 cm/sec. Dist CCA 57.9/7.8 cm/sec. Dist CCA 67.4/9.7 cm/sec. Prox ICA 40.9/9.7 cm/sec. Prox ICA 49.1/7.2 cm/sec. Mid ICA 63.6/15.4 cm/sec. Mid ICA 61.3/11.6 cm/sec. Dist ICA 62.6/14.5 cm/sec. Dist ICA 58.7/15.1 cm/sec. Rt. ICA/CCA = 1.20. Lt. ICA/CCA = 0.78. Prox ECA 78.7/6 cm/sec. Prox ECA 58.9/3.1 cm/sec. Rt. Vert. 55.2/10.7 cm/sec. Lt. Vert. 67.4/13.3 cm/sec. Right Extracranial There is intimal thickening but no significant atherosclerotic plaque noted in the right common carotid artery. There is homogeneous, smooth atherosclerotic plaque noted in the right internal carotid artery. There is intimal thickening but no significant atherosclerotic plaque noted in the right external carotid artery. Antegrade flow is noted in the right vertebral artery. There is heterogeneous, irregular atherosclerotic plaque noted in the right bulb. Left Extracranial There is homogeneous, smooth atherosclerotic plaque noted in the left common carotid artery. There is intimal thickening but no significant atherosclerotic plaque noted in the left internal carotid artery. There is intimal thickening but no significant atherosclerotic plaque noted in the left external carotid artery. Antegrade flow is noted in the left vertebral artery. Procedure Carotid Duplex [id number]. This is a Carotid Duplex examination using B-mode, color flow and specral Doppler. Exam performed portable in patient room. VL/Carotid Duplex Ultrasound Interpretation Summary Mild (<50%) stenosis right extracranial internal carotid. No significant athero sclerotic plaque or stenosis noted in the left internal carotid artery. Flow within the vertebral a rteries is antegrade bilaterally. Heterogeneous, irregular atherosclerotic plaque is noted in the ri ght carotid bulb, which does not appear to be hemodynamically significant. Ordering Physician: Ishan Azevedo Referring Physician: Santos Franz Performed By: Fidelina Oshea RVT
[2024-03-17] MEDS: 0.9% Normal Saline (1000mL) 1,000 ML 70 ML IV (22:39)
[2024-03-17 23:28] LABS: Cholesterol 173 mg/dL (200); High Density Lipoprotein 46 mg/dL; Triglycerides 196 mg/dL; Very Low Density Lipoprotein 39 mg/dL (5-40)
[2024-03-17] MEDS: Heparin Injection (Vial) 5,000 UNIT/ML VIAL 5000 UNIT SC (23:50)
[2024-03-17] MEDS: Atorvastatin Calcium 40 MG Tablet PO (23:51)
[2024-03-18] VITALS (9 sets, daily range): BP systolic 113–155; BP diastolic 50–71; PULSE 56–66; RESP 14–18; TEMP 36.6–36.8; O2SAT 93–96; BMI 28.0
[2024-03-18 02:42] LABS: Vitamin B12 362 pg/mL (211-911)
[2024-03-18 07:23] LABS: Amphetamine Urine VISTA NEGATIVE (<1000 ng/mL); Barbiturate Urine VISTA NEGATIVE (< 200 ng/mL); Benzodiazepine Urine VISTA NEGATIVE (< 200 ng/mL); Cocaine Urine VISTA NEGATIVE (< 300 ng/mL); Ecstacy Urine VISTA NEGATIVE (< 500 ng/mL); Methadone Urine VISTA NEGATIVE (< 300 ng/mL); PCP Urine VISTA NEGATIVE (< 25 ng/mL); THC Urine VISTA NEGATIVE (< 50 ng/mL); Vista UDS pH Range 7
[2024-03-18 08:04] LABS: Cholesterol 152 mg/dL (200); High Density Lipoprotein 50 mg/dL; Triglycerides 93 mg/dL; Very Low Density Lipoprotein 19 mg/dL (5-40)
--- NOTE | 2024-03-18 09:30 | MRI_ITS ---
PROCEDURE: BRAIN WITHOUT CONTRAST REASON FOR EXAM: Acute CVA. TECHNIQUE: MRI of the brain without contrast. COMPARISON: Brain MRI of 03/16/2024.. FINDINGS: Newly noted is an area of diffusion restriction in the medial right occipital lobe, extending to the medial aspect of the occipital horn of the right lateral ventricle. No adjacent edema or mass effect is seen. This is most consistent with an area of recent infarction. Stable generalized atrophy. No extra-axial fluid collection is seen. Ventricles appear unchanged. No orbital pathology is evident. Near-complete opacification of the right maxillary sinus is seen. Mild mucosal thickening is seen of the ethmoid air cells and left maxillary sinus. No air-fluid level is noted. Mastoid air cells appear clear. MRI/Brain without Contrast IMPRESSION: Newly visualized area of infarction in the medial right occipital lobe. Reading Location: [address]
[2024-03-18] MEDS: Clopidogrel Bisulfate 75 MG Tablet PO (11:04)
[2024-03-18] MEDS: Aspirin 81 MG TAB.CHEW PO (11:04)
--- NOTE | 2024-03-18 11:15 | CASEMGMT ---
RN CM PHARMACY TECHNICIAN TRAINEE CM?to room for initial transition planning/care coordination assessment. Pt is out of room at this time for MRI. @ bedside. RN ADAM?introduced self and role at [facility]. The following information provided by . Care providers, pharmacy, and demographics verified/updated at this time. Strata:?2 PCP: Dr Franz Specialists:[facility]/Cardiology Preferred Pharmacy: [facility] Insurance: O [facility] Prescription Benefit: yes Living Will/HPOA: Pt has LW and HCPOA, who is his . Questions answered re: DNR and LW. voices appreciation. provided w/AD booklet. LNOK: , Miiram. 2 sons and 1 daughter. One son's name is Matthew. Living Arrangements: Lives w/ in mobile home w/3 steps to enter. Pt is very independent w/ADL's and IADL's. Son, Matthew, lives on same property. Transportation:Pt and both drive. DME: Pt does not use any DME and denies needs. He does have a cane and walker available. HHC/SNF: No hx of either. states pt wishes to return home and states has no concerns with him going home at time of discharge. PT/OT evals pending. CM?to follow for any discharge planning/needs. voices no further concerns/needs at this time. PLAN: Home MRI results pending. PT/OT evals pending. Andrea LORENZO RN, CM
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
[2024-03-18 13:23] LABS: Hemoglobin A1c 5.5 % (3.8-5.6)
--- NOTE | 2024-03-18 16:30 | CHAPLAIN ---
Type of Pastoral Visit _x__ Initial Visit ___ Follow-up Visit ___ On-call Visit ___ General Patient Visit ___ Spiritual Assessment ___ Family Conference ___ Bereavement ___ Rapid Response ___ Code Blue ___ Other (describe below) Pastoral Care Referral From _x__ Patient _x__ Family ___ Nurse ___ Physician ___ Customer Care Agent ___ Rn Invasive ___ Other (describe below) Sacrament/Intervention _x__ Active listening ___ Anointing ___ Sikhism ___ Bereavement ___ Communion ___ Shayna exploration ___ ___ Life review _x__ Prayer ___ Reconciliation ___ Sacrament of Sick ___ Supportive presence ___ Wedding ___ Other (describe below) Pastoral Comments patient was seen the last two days but had been discharged yesterday before returning to ED yesterday with new symptoms of a possible stroke; pt and spouse are offered new support and prayers; a friend was also visiting; pt is appreciative of the concerns and follow up support
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
[2024-03-18] MEDS: Enoxaparin 40 MG/0.4 ML Syringe SC (19:19)
[2024-03-18] MEDS: Atorvastatin Calcium 40 MG Tablet PO (22:17)
--- NOTE | 2024-03-18 22:49 | EKG12_ITS ---
Test Reason : CP Blood Pressure : */* mmHG Vent. Rate : 62 BPM Atrial Rate : 62 BPM P-R Int : 290 ms QRS Dur : 100 ms QT Int : 424 ms P-R-T Axes : 64 -15 21 degrees QTcB Int : 430 ms Sinus rhythm with 1st degree A-V block Minimal voltage criteria for LVH, may be normal variant ( R in aVL ) Borderline ECG When compared with ECG of 17-Mar-2024 19:09, MANUAL COMPARISON REQUIRED DATA IS UNCONFIRMED Confirmed by GIULIANA CAI, MIRI ([id number]), editor sound ELIEL HAWKINS ([id number]) on 03/21/2024 8:29:01 AM Referred By: Confirmed By: MIRI GIORDANO MD
[2024-03-19 02:00] VITALS: BP 137/63; PULSE 59; RESP 20; TEMP 36.6; O2SAT 96
[2024-03-19 05:00] VITALS: BMI 28.0
[2024-03-19 06:00] VITALS: BP 159/77; PULSE 59; RESP 20; TEMP 36.4; O2SAT 96
[2024-03-19 07:00] VITALS: PULSE 55
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
[2024-03-19] MEDS: Clopidogrel Bisulfate 75 MG Tablet PO (08:44)
[2024-03-19] MEDS: Aspirin 81 MG TAB.CHEW PO (08:44)
[2024-03-19 09:09] VITALS: BP 161/74; PULSE 63; RESP 18; TEMP 37.1; O2SAT 97
[2024-03-19 09:17] VITALS: O2SAT 95
[2024-03-19 09:30] VITALS: BP 161/74; PULSE 63; RESP 18; TEMP 37.1; O2SAT 97
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
[2024-03-19 13:51] VITALS: BMI 28.0
[2024-03-21 13:31] LABS: Bedside Glucose 128 mg/dL (74-106)
== END 2024-03-19 14:31 | disposition home or self-care (01) | DRG 66 ==
LOC: ED 19:35 → PCU 21:56
PROVIDERS: Admitting Provider Internal Medicine; Emergency Provider Emergency Medicine; PCP Family Medicine; Visit Provider Internal Medicine
DX: I63.89 Other cerebral infarction (principal); F07.81 Postconcussional syndrome; I35.0 Nonrheumatic aortic (valve) stenosis; I65.21 Occlusion and stenosis of right carotid artery; H53.462 Homonymous bilateral field defects, left side; E78.5 Hyperlipidemia, unspecified; E83.52 Hypercalcemia; N40.0 Benign prostatic hyperplasia without lower urinary tract symptoms; R03.0 Elevated blood-pressure reading, without diagnosis of hypertension; Z87.891 Personal history of nicotine dependence; Z68.27 Body mass index [BMI] 27.0-27.9, adult; E66.3 Overweight; R47.1 Dysarthria and anarthria; R29.810 Facial weakness; Z86.73 Personal history of transient ischemic attack (TIA), and cerebral infarction without residual deficits; R29.703 NIHSS score 3
CPT/HCPCS: 36415; 70450; 70496; 70498; 70551; 71045; 80048; 80061; 80076; 80307; 81002; 82077; 82306; 82607; 82746; 82962; 83036; 83970; 84443; 84484; 85025; 85027; 85610; 85730; 92610; 93005; 93306; 93880; 94762; 97116; 97162; 97165; 97802; 99221; 99285; Q9967; A4216; G0378